=== PATIENT | male | born 1980 | race Asian ===

== ENCOUNTER 2017-07-23 23:02 | Emergency (ER) | payer BC ==
[~2017-07-23] VITALS: Ht 162.6 cm; Wt 78.0 kg
[~2017-07-23 23:02] MED LIST: ALBU6.7H INH; FLUT1DIS7 INH; PRED20TA PO; THEO400T PO
[2017-07-23] MEDS ORDERED: dexamethasone 4mg tablet PO ONE (23:20)
[2017-07-23] MEDS ORDERED: terbutaline 1 mg/ml inj SQ STA (23:20)
[2017-07-24] MEDS: albuterol 2.5 MG/3 ML nebule CONTNEB PRN ×2 (00:01→01:48)
[2017-07-24] MEDS ORDERED: albuterol 2.5 MG/3 ML nebule CONTNEB PRN (01:20)
[2017-07-24] MEDS ORDERED: azithromycin 250mg tablet PO ONE (02:40)
[2017-07-24] MEDS ORDERED: AZIT250T PO (02:40)
[2017-07-24] MEDS ORDERED: PRED20TA PO (02:40)
[2017-07-24] MEDS ORDERED: ALBU6.7H INH (02:40)
[2017-07-24 03:17] VITALS: BP 140/85
== END 2017-07-24 03:18 | disposition home or self-care (01) ==
LOC: ER 23:03
DX: J45.901 Unspecified asthma with (acute) exacerbation (principal); J18.1 Lobar pneumonia, unspecified organism; R06.03 Acute respiratory distress; Z88.1 Allergy status to other antibiotic agents; Z88.6 Allergy status to analgesic agent; Z91.018 Allergy to other foods; Z91.010 Allergy to peanuts; Z88.8 Allergy status to other drugs, medicaments and biological substances; Z79.899 Other long term (current) drug therapy
CPT/HCPCS: 71046; 94644; 94645; 94760; 96372; 99291; J3105; J8540; 94640

== ENCOUNTER 2017-08-19 21:35 | Emergency (ER) | payer BC ==
[~2017-08-19] VITALS: Ht 180.3 cm; Wt 77.2 kg
[~2017-08-19 21:35] MED LIST changes: +AZIT250T PO
[2017-08-19 21:49] VITALS: BP 114/59
[2017-08-19] MEDS ORDERED: albuterol 2.5 MG/3 ML nebule CONTNEB PRN (22:15)
[2017-08-19] MEDS ORDERED: dexamethasone 4mg tablet PO ONE (22:15)
[2017-08-21] MEDS ORDERED: ALB0.5UD IH (14:49)
[2017-08-21] MEDS ORDERED: PRED20TA PO (16:33)
[2017-08-21] MEDS ORDERED: ATR0.5NEB NEB (16:33)
== END 2017-08-20 00:12 | disposition home or self-care (01) ==
LOC: ER 21:36
DX: J45.909 Unspecified asthma, uncomplicated (principal); Z98.890 Other specified postprocedural states; Z60.2 Problems related to living alone; Z88.8 Allergy status to other drugs, medicaments and biological substances; Z91.010 Allergy to peanuts; Z91.018 Allergy to other foods; Z79.899 Other long term (current) drug therapy
CPT/HCPCS: 94644; 94760; 99285; J8540

== ENCOUNTER 2017-08-21 00:45 | Inpatient (IN) | payer BC ==
[~2017-08-21] VITALS: Ht 162.6 cm; Wt 76.0 kg
[2017-08-21] MEDS ORDERED: albuterol 2.5 MG/3 ML nebule CONTNEB PRN ×2 (01:00→01:05)
[2017-08-21] MEDS ORDERED: methylPREDNISolone sod succ 125mg/2ml vial IV ONE (01:05)
[2017-08-21 01:22] LABS: BASOPHILS % (AUTO) 0.4 % (0-1); EOSINOPHILS % (AUTO) 0.2 % (0-6); HEMOGLOBIN 15.3 g/dl (14.0-17.9); LYMPHOCYTES # (AUTO) 2.1 X10'3 (1.1-4.8); LYMPHOCYTES % (AUTO) 17.4 % (21-51); MEAN CORPUSCULAR HEMOGLOBIN 30.1 PG (27.0-31.0); MEAN CORPUSCULAR VOLUME 88.6 FL (78-98); MEAN PLATELET VOLUME 9.7 FL (7.4-10.4); MONOCYTES # (AUTO) 0.9 X10'3 (0-0.9); NEUTROPHILS # (AUTO) 8.9 X10'3 (1.8-7.7); PLATELET COUNT 177 X10'3 (140-440); RED BLOOD COUNT 5.08 X10'6 (4.70-6.10); RED CELL DISTRIBUTION WIDTH 12.8 % (11.5-14.5); WHITE BLOOD COUNT 11.9 X10'3 (4.5-11.0)
[2017-08-21 01:36] LABS: ALANINE AMINOTRANSFERASE 112 U/L (12-78); ALBUMIN/GLOBULIN RATIO 1.3 (1.1-1.5); ALKALINE PHOSPHATASE 88 IU/L (46-116); ANION GAP 10 (8-16); ASPARTATE AMINO TRANSFERASE 27 U/L (10-37); BILIRUBIN,TOTAL 0.4 MG/DL (0.1-1.0); BLOOD UREA NITROGEN 18 MG/DL (7-18); BUN/CREATININE RATIO 15.4 (5.4-32.0); CALCIUM 8.7 MG/DL (8.5-10.1); CHLORIDE 107 MMOL/L (99-107); CREATININE 1.17 MG/DL (0.60-1.10); GLUCOSE 122 MG/DL (70-104); MAGNESIUM 2.2 MG/DL (1.5-2.4); POTASSIUM 3.5 MMOL/L (3.5-5.1); SODIUM 143 MMOL/L (135-145); TOTAL CARBON DIOXIDE 25.9 MMOL/L (24-32); TOTAL PROTEIN 7.2 G/DL (6.4-8.2); eGFR 69 ML/MIN
[2017-08-21] MEDS ORDERED: ondansetron/PF 4mg/2ml inj IV PRN (02:20)
[2017-08-21] MEDS ORDERED: magnesium hydroxide 30ml (MOM) UD suspension PO PRN (02:20)
[2017-08-21] MEDS ORDERED: mag hydrox/Alum hydrox/simeth 30ml oral suspension PO PRN (02:20)
[2017-08-21] MEDS ORDERED: acetaminophen 325mg tablet PO PRN ×2 (02:20)
[2017-08-21] MEDS ORDERED: ipratropium/albuterol 3ml nebule NEB PRN (02:35)
[2017-08-21] MEDS ORDERED: fluticasone/vilanterol 200mcg/25mcg inhaler IH SCH (08:00)
[2017-08-21] MEDS ORDERED: montelukast 10mg tablet PO SCH (08:00)
[2017-08-21] MEDS: methylPREDNISolone sod succ 125mg/2ml vial IV SCH ×2 (10:22→15:21)
[2017-08-21 10:30] VITALS: BP 121/77
[2017-08-21] MEDS ORDERED: ALB0.5UD IH (14:49)
[2017-08-21] MEDS ORDERED: pneumococcal 23-VAL P-sac vacc 25 mcg/0.5ml vial IMVAC ONE (14:55)
[2017-08-21] MEDS ORDERED: PRED20TA PO (16:33)
[2017-08-21] MEDS ORDERED: ATR0.5NEB NEB (16:33)
== END 2017-08-21 16:50 | disposition home or self-care (01) | DRG 203 ==
LOC: ER 00:46 → ED HOLD 02:16 → SUR 3N 07:54
PROVIDERS: ADMIT Internal Medicine; ATTEND Family Medicine
PROC: 3E0234Z Introduction of Serum, Toxoid and Vaccine into Muscle, Percutaneous Approach (ICD-10-PCS; principal; 2017-08-21)
DX: J45.901 Unspecified asthma with (acute) exacerbation (principal); R09.02 Hypoxemia; Z88.1 Allergy status to other antibiotic agents; Z80.9 Family history of malignant neoplasm, unspecified; Z88.8 Allergy status to other drugs, medicaments and biological substances; Z91.018 Allergy to other foods; Z91.010 Allergy to peanuts; Z82.5 Family history of asthma and other chronic lower respiratory diseases; Z77.22 Contact with and (suspected) exposure to environmental tobacco smoke (acute) (chronic); Z23 Encounter for immunization
CPT/HCPCS: 36415; 71045; 80053; 83735; 85025; 87070; 90732; 94640; 94760; 96374; 99291; J2930; J7030

== ENCOUNTER 2017-09-10 01:44 | Emergency (ER) | payer BC ==
[~2017-09-10] VITALS: Ht 162.6 cm; Wt 77.3 kg
[~2017-09-10 01:44] MED LIST changes: +ALB0.5UD IH; +ATR0.5NEB NEB; -AZIT250T PO; -THEO400T PO
[2017-09-10] MEDS ORDERED: PRED10TA23 PO (02:19)
[2017-09-10] MEDS ORDERED: predniSONE 20 mg tablet PO ONE (02:20)
[2017-09-10 02:33] VITALS: BP 137/94
== END 2017-09-10 02:34 | disposition home or self-care (01) ==
LOC: ER 01:44
DX: J30.2 Other seasonal allergic rhinitis (principal); J45.909 Unspecified asthma, uncomplicated; Z88.6 Allergy status to analgesic agent; Z88.1 Allergy status to other antibiotic agents; Z91.010 Allergy to peanuts; Z88.8 Allergy status to other drugs, medicaments and biological substances; Z91.018 Allergy to other foods; Z79.899 Other long term (current) drug therapy; Z98.890 Other specified postprocedural states; Z60.2 Problems related to living alone
CPT/HCPCS: 99283; J7512

== ENCOUNTER 2017-09-11 10:31 | Emergency (ER) | payer BC ==
[~2017-09-11] VITALS: Ht 162.6 cm; Wt 77.3 kg
[~2017-09-11 10:31] MED LIST changes: +PRED10TA23 PO
[2017-09-11] MEDS ORDERED: albuterol 2.5 MG/3 ML nebule CONTNEB PRN (10:45)
[2017-09-11] MEDS ORDERED: magnesium 2GM in 50ml NS 50 ML IV ONE ×2 (10:45→11:25)
[2017-09-11] MEDS ORDERED: methylPREDNISolone sod succ 125mg/2ml vial IV ONE (10:45)
[2017-09-11] MEDS ORDERED: normal saline 1000ML IV soln IVB ONE (10:45)
[2017-09-11] MEDS ORDERED: albuterol 2.5 MG/3 ML nebule ONE (10:54)
[2017-09-11] MEDS ORDERED: methylPREDNISolone sod succ 125mg/2ml vial ONE (11:02)
[2017-09-11] MEDS ORDERED: MAGNESIUM IV ONE (11:13)
[2017-09-11] MEDS ORDERED: NS IV ONE (11:13)
[2017-09-11 12:58] VITALS: BP 130/54
== END 2017-09-11 13:01 | disposition home or self-care (01) ==
LOC: ER 10:31
DX: J45.901 Unspecified asthma with (acute) exacerbation (principal); Z98.890 Other specified postprocedural states; Z60.2 Problems related to living alone; Z88.8 Allergy status to other drugs, medicaments and biological substances; Z91.018 Allergy to other foods; Z91.010 Allergy to peanuts; Z79.899 Other long term (current) drug therapy
CPT/HCPCS: 71045; 94644; 94760; 96365; 96375; 99285; J2930; J3475; J7030; 94640

== ENCOUNTER 2017-10-16 11:32 | Emergency (ER) | payer BC, OTHER ==
[~2017-10-16] VITALS: Ht 162.6 cm; Wt 67.0 kg
[~2017-10-16 11:32] MED LIST changes: -PRED10TA23 PO; -PRED20TA PO
[2017-10-16] MEDS ORDERED: normal saline 1000ML IV soln IVB ONE (13:10)
[2017-10-16] MEDS ORDERED: albuterol 2.5 MG/3 ML nebule NEB ONE (13:10)
[2017-10-16] MEDS ORDERED: FLUT1DIS INH (14:10)
[2017-10-16 14:30] VITALS: BP 119/81
== END 2017-10-16 14:31 | disposition home or self-care (01) ==
LOC: ER 11:33
DX: J45.901 Unspecified asthma with (acute) exacerbation (principal); Z88.6 Allergy status to analgesic agent; Z88.1 Allergy status to other antibiotic agents; Z79.899 Other long term (current) drug therapy; Z91.010 Allergy to peanuts; Z88.8 Allergy status to other drugs, medicaments and biological substances; Z91.018 Allergy to other foods; Z60.2 Problems related to living alone
CPT/HCPCS: 71045; 94640; 94760; 99284; J7030

== ENCOUNTER 2017-10-29 15:24 | Emergency (ER) | payer OTHER ==
[~2017-10-29] VITALS: Ht 162.6 cm; Wt 74.0 kg
[~2017-10-29 15:24] MED LIST changes: +FLUT1DIS INH
[2017-10-29] MEDS ORDERED: methylPREDNISolone sod succ 125mg/2ml vial IV ONE (15:45)
[2017-10-29] MEDS ORDERED: albuterol 2.5 MG/3 ML nebule NEB ONE ×2 (15:45→17:20)
[2017-10-29] MEDS ORDERED: PRED10TA23 PO (17:17)
[2017-10-29 17:47] VITALS: BP 129/78
== END 2017-10-29 17:49 | disposition home or self-care (01) ==
LOC: ER 15:26
DX: J45.901 Unspecified asthma with (acute) exacerbation (principal); Z98.890 Other specified postprocedural states; Z88.6 Allergy status to analgesic agent; Z88.1 Allergy status to other antibiotic agents; Z91.018 Allergy to other foods; Z79.899 Other long term (current) drug therapy; Z60.2 Problems related to living alone
CPT/HCPCS: 94640; 94760; 96374; 99284; J2930

== ENCOUNTER 2017-12-03 18:01 | Emergency (ER) | payer OTHER ==
[~2017-12-03] VITALS: Ht 162.6 cm; Wt 73.0 kg
[~2017-12-03 18:01] MED LIST changes: +PRED20TA PO
[2017-12-03] MEDS ORDERED: methylPREDNISolone sod succ 125mg/2ml vial IV ONE (18:15)
[2017-12-03] MEDS ORDERED: magnesium 1gm/100ml D5W IVPB 100 ML IV ONE (18:15)
[2017-12-03] MEDS ORDERED: albuterol 2.5 MG/3 ML nebule CONTNEB PRN (18:15)
[2017-12-03] MEDS ORDERED: normal saline 1000ML IV soln IVB ONE (18:15)
[2017-12-03 19:02] VITALS: BP 132/87
== END 2017-12-03 19:46 | disposition home or self-care (01) ==
LOC: ER 18:02
DX: J45.901 Unspecified asthma with (acute) exacerbation (principal); Z88.6 Allergy status to analgesic agent; Z88.1 Allergy status to other antibiotic agents; Z88.8 Allergy status to other drugs, medicaments and biological substances; Z91.010 Allergy to peanuts; Z79.899 Other long term (current) drug therapy; Z60.2 Problems related to living alone
CPT/HCPCS: 71045; 94644; 94760; 96365; 96375; 99285; J2930; J7030; 94640

== ENCOUNTER 2017-12-18 02:43 | Emergency (ER) | payer OTHER ==
[~2017-12-18] VITALS: Ht 162.6 cm; Wt 74.4 kg
[2017-12-18] MEDS ORDERED: dexamethasone 4mg tablet PO STA (02:48)
[2017-12-18 02:49] VITALS: BP 113/86
[2017-12-18] MEDS ORDERED: ipratropium/albuterol 3ml nebule NEB ONE (02:50)
[2017-12-18] MEDS ORDERED: ALBU8HFA PO (03:19)
[2017-12-18] MEDS ORDERED: DOXY100C43 PO (03:19)
[2017-12-18] MEDS ORDERED: PRED5TAB PO (03:19)
[2017-12-18] MEDS ORDERED: albuterol 2.5 MG/3 ML nebule CONTNEB PRN (03:40)
[2017-12-18] MEDS ORDERED: ONDA4TAB9 PO (05:00)
== END 2017-12-18 05:19 | disposition home or self-care (01) ==
LOC: ER 02:44
DX: J45.901 Unspecified asthma with (acute) exacerbation (principal); J20.9 Acute bronchitis, unspecified; Z88.6 Allergy status to analgesic agent; Z88.1 Allergy status to other antibiotic agents; Z88.8 Allergy status to other drugs, medicaments and biological substances; Z91.018 Allergy to other foods; Z79.899 Other long term (current) drug therapy
CPT/HCPCS: 94640; 94644; 94760; 99285; J8540

== ENCOUNTER 2018-02-02 11:57 | Emergency (ER) | payer MEDICAID, OTHER ==
[~2018-02-02] VITALS: Ht 162.6 cm; Wt 74.0 kg
[~2018-02-02 11:57] MED LIST changes: +INHA1INH2 IH; +PRED10TA PO; -PRED20TA PO; +PRED5TAB PO
[2018-02-02] MEDS ORDERED: ipratropium/albuterol 3ml nebule NEB ONE (12:15)
[2018-02-02] MEDS ORDERED: methylPREDNISolone sod succ 125mg/2ml vial IM ONE (12:20)
[2018-02-02] MEDS ORDERED: PRED10TA PO (13:20)
[2018-02-02] MEDS ORDERED: ALB0.5UD IH (13:20)
[2018-02-02] MEDS ORDERED: ALBU8HFA PO (13:20)
[2018-02-02 13:35] VITALS: BP 126/78
== END 2018-02-02 13:38 | disposition home or self-care (01) ==
LOC: ER 11:58
DX: J45.901 Unspecified asthma with (acute) exacerbation (principal); Z88.5 Allergy status to narcotic agent; Z88.1 Allergy status to other antibiotic agents; Z91.018 Allergy to other foods; Z91.010 Allergy to peanuts; Z88.8 Allergy status to other drugs, medicaments and biological substances; Z79.899 Other long term (current) drug therapy
CPT/HCPCS: 93005; 94640; 94760; 96372; 99283; J2930

== ENCOUNTER 2018-02-25 04:41 | Emergency (ER) | payer MEDICAID ==
[~2018-02-25] VITALS: Ht 162.6 cm; Wt 70.0 kg
[~2018-02-25 04:41] MED LIST changes: +ALBU8HFA PO
[2018-02-25 04:44] VITALS: BP 123/84
[2018-02-25] MEDS ORDERED: ipratropium/albuterol 3ml nebule NEB ONE (04:55)
[2018-02-25] MEDS ORDERED: PRED20TA PO (05:01)
== END 2018-02-25 05:18 | disposition home or self-care (01) ==
LOC: ER 04:42
DX: J22 Unspecified acute lower respiratory infection (principal); J45.909 Unspecified asthma, uncomplicated; Z88.6 Allergy status to analgesic agent; Z88.1 Allergy status to other antibiotic agents; Z91.018 Allergy to other foods; Z91.010 Allergy to peanuts; Z88.8 Allergy status to other drugs, medicaments and biological substances; Z79.899 Other long term (current) drug therapy; Z60.2 Problems related to living alone
CPT/HCPCS: 99283

== ENCOUNTER 2018-03-27 00:10 | Emergency (ER) | payer MEDICAID ==
[~2018-03-27] VITALS: Ht 162.6 cm; Wt 170.0 kg
[~2018-03-27 00:10] MED LIST changes: -ALBU8HFA PO; +PRED20TA PO
[2018-03-27] MEDS ORDERED: ipratropium 0.5 MG/2.5ML nebule IH ONE (00:55)
[2018-03-27] MEDS ORDERED: albuterol 2.5 MG/3 ML nebule CONTNEB PRN (00:55)
[2018-03-27] MEDS ORDERED: methylPREDNISolone sod succ 125mg/2ml vial IV ONE (00:55)
[2018-03-27] MEDS ORDERED: normal saline 1000ML IV soln IVB ONE (01:40)
[2018-03-27] MEDS ORDERED: INHA1INH2 (02:52)
[2018-03-27] MEDS ORDERED: PRED20TA PO (02:52)
[2018-03-27 03:26] VITALS: BP 113/70
== END 2018-03-27 03:27 | disposition home or self-care (01) ==
LOC: ER 00:10
DX: J45.901 Unspecified asthma with (acute) exacerbation (principal); Z88.6 Allergy status to analgesic agent; Z88.1 Allergy status to other antibiotic agents; Z91.010 Allergy to peanuts; Z91.018 Allergy to other foods; Z88.8 Allergy status to other drugs, medicaments and biological substances; Z79.899 Other long term (current) drug therapy; Z60.2 Problems related to living alone
CPT/HCPCS: 87502; 87503; 94644; 94760; 96374; 99285; J2930; 94640

== ENCOUNTER 2018-05-05 20:49 | Emergency (ER) | payer MEDICAID ==
[~2018-05-05] VITALS: Ht 162.6 cm; Wt 74.0 kg
[~2018-05-05 20:49] MED LIST changes: +INHA1INH2; -PRED20TA PO
[2018-05-05] MEDS ORDERED: albuterol 2.5 MG/3 ML nebule NEB ONE (21:00)
[2018-05-05 21:01] VITALS: BP 134/73
[2018-05-05] MEDS ORDERED: ipratropium/albuterol 3ml nebule NEB ONE (21:15)
[2018-05-05] MEDS ORDERED: predniSONE 20 mg tablet PO ONE (21:15)
[2018-05-05] MEDS ORDERED: ipratropium/albuterol 3ml nebule ONE (21:23)
[2018-05-05] MEDS ORDERED: PRED20TA PO (21:34)
[2018-05-05] MEDS ORDERED: ALBU8.5H8 IH (21:56)
== END 2018-05-05 22:07 | disposition home or self-care (01) ==
LOC: ER 20:50
DX: J45.901 Unspecified asthma with (acute) exacerbation (principal); F17.210 Nicotine dependence, cigarettes, uncomplicated; Z98.890 Other specified postprocedural states; Z87.01 Personal history of pneumonia (recurrent); Z79.899 Other long term (current) drug therapy; Z88.6 Allergy status to analgesic agent; Z88.1 Allergy status to other antibiotic agents; Z91.010 Allergy to peanuts
CPT/HCPCS: 93005; 94640; 94760; 99283; J7512

== ENCOUNTER 2018-05-24 08:22 | Emergency (ER) | payer MEDICAID ==
[~2018-05-24] VITALS: Ht 162.6 cm; Wt 73.0 kg
[~2018-05-24 08:22] MED LIST changes: +ALBU8.5H8 IH; +PRED20TA PO
[2018-05-24] MEDS ORDERED: normal saline 1000ML IV soln IVB ONE (08:55)
[2018-05-24] MEDS ORDERED: albuterol 2.5 MG/3 ML nebule CONTNEB PRN (08:55)
[2018-05-24] MEDS ORDERED: methylPREDNISolone sod succ 125mg/2ml vial IV ONE (08:55)
[2018-05-24 09:18] LABS: BASOPHILS % (AUTO) 0.5 % (0-1); EOSINOPHILS # (AUTO) 0.8 X10'3 (0-0.9); EOSINOPHILS % (AUTO) 9.2 % (0-6); HEMATOCRIT 46.9 % (42.0-52.0); HEMOGLOBIN 15.8 g/dl (14.0-17.9); LYMPHOCYTES # (AUTO) 1.7 X10'3 (1.1-4.8); LYMPHOCYTES % (AUTO) 20.4 % (21-51); MEAN CORPUSCULAR HEMOGLOBIN 29.8 PG (27.0-31.0); MEAN CORPUSCULAR HGB CONC 33.6 % (33.0-36.5); MEAN CORPUSCULAR VOLUME 88.7 FL (78-98); MEAN PLATELET VOLUME 8.7 FL (7.4-10.4); MONOCYTES # (AUTO) 0.7 X10'3 (0-0.9); MONOCYTES % (AUTO) 8.8 % (2-12); NEUTROPHILS # (AUTO) 5.1 X10'3 (1.8-7.7); NEUTROPHILS % (AUTO) 61.1 % (42-75); PLATELET COUNT 209 X10'3 (140-440); RED BLOOD COUNT 5.28 X10'6 (4.70-6.10); RED CELL DISTRIBUTION WIDTH 14.3 % (11.5-14.5); WHITE BLOOD COUNT 8.4 X10'3 (4.5-11.0)
[2018-05-24 09:43] LABS: ALANINE AMINOTRANSFERASE 39 U/L (12-78); ALBUMIN 3.6 G/DL (3.4-5.0); ALKALINE PHOSPHATASE 76 IU/L (46-116); ANION GAP 8 (8-16); ASPARTATE AMINO TRANSFERASE 20 U/L (10-37); BILIRUBIN,TOTAL 0.5 MG/DL (0.1-1.0); BLOOD UREA NITROGEN 8 MG/DL (7-18); BUN/CREATININE RATIO 6.5 (5.4-32.0); CALCIUM 8.4 MG/DL (8.5-10.1); CHLORIDE 108 MMOL/L (99-107); CREATININE 1.23 MG/DL (0.60-1.10); SODIUM 143 MMOL/L (135-145); TOTAL CARBON DIOXIDE 27.4 MMOL/L (24-32); TOTAL PROTEIN 7.3 G/DL (6.4-8.2); eGFR 65 ML/MIN
[2018-05-24 09:53] VITALS: BP 113/82
[2018-05-24 10:02] LABS: GLUCOSE 84 MG/DL (70-104)
[2018-05-24] MEDS ORDERED: PRED10TA23 PO (10:24)
[2018-05-24 10:40] LABS: D-DIMER 1.01 MG/L FEU (0-0.50); PARTIAL THROMBOPLASTIN TIME 33 SECONDS (22-32); PROTHROMBIN TIME 10.3 SECONDS (9.0-12.0)
== END 2018-05-24 10:41 | disposition home or self-care (01) ==
LOC: ER 08:22
DX: J45.901 Unspecified asthma with (acute) exacerbation (principal); Z87.01 Personal history of pneumonia (recurrent); Z98.890 Other specified postprocedural states; Z79.899 Other long term (current) drug therapy; Z88.6 Allergy status to analgesic agent; Z88.1 Allergy status to other antibiotic agents; Z91.018 Allergy to other foods; Z91.010 Allergy to peanuts
CPT/HCPCS: 36415; 71045; 80053; 83880; 84484; 85025; 85379; 85610; 85730; 93005; 94644; 96361; 96374; 99285; J2930; J7030; 94640; 99284

== ENCOUNTER 2018-06-13 02:20 | Emergency (ER) | payer MEDICAID ==
[~2018-06-13] VITALS: Ht 162.6 cm; Wt 77.0 kg
[~2018-06-13 02:20] MED LIST changes: +PRED10TA23 PO; -PRED20TA PO
[2018-06-13] MEDS ORDERED: albuterol 2.5 MG/3 ML nebule CONTNEB PRN (02:30)
[2018-06-13] MEDS ORDERED: dexamethasone 4mg tablet PO ONE (02:30)
--- NOTE | 2018-06-13 02:52 | NUR ---
PT GIVEN PO MEDS - RT PAGED, PT AWAITING SVN
[2018-06-13] MEDS ORDERED: DEC4T PO (03:29)
[2018-06-13 04:22] VITALS: BP 136/98
== END 2018-06-13 04:23 | disposition home or self-care (01) ==
LOC: ER 02:21
DX: J45.901 Unspecified asthma with (acute) exacerbation (principal); Z88.6 Allergy status to analgesic agent; Z88.1 Allergy status to other antibiotic agents
CPT/HCPCS: 94640; 94760; 99283; J8540

== ENCOUNTER 2018-07-19 17:02 | Emergency (ER) | payer MEDICAID ==
[~2018-07-19] VITALS: Ht 162.6 cm; Wt 77.3 kg
[~2018-07-19 17:02] MED LIST changes: +FLUT100D2 INH; -PRED10TA23 PO; +PRED20TA PO
[2018-07-19 17:59] LABS: BASOPHILS % (AUTO) 0.3 % (0-1); EOSINOPHILS # (AUTO) 0.8 X10'3 (0-0.9); HEMATOCRIT 49.1 % (42.0-52.0); HEMOGLOBIN 16.1 g/dl (14.0-17.9); LYMPHOCYTES # (AUTO) 2.5 X10'3 (1.1-4.8); MEAN CORPUSCULAR HEMOGLOBIN 29.4 PG (27.0-31.0); MEAN CORPUSCULAR HGB CONC 32.8 g/dL (33.0-36.5); MEAN CORPUSCULAR VOLUME 89.6 FL (78-98); MEAN PLATELET VOLUME 9.1 FL (7.4-10.4); MONOCYTES # (AUTO) 1.5 X10'3 (0-0.9); MONOCYTES % (AUTO) 11.8 % (2-12); NEUTROPHILS # (AUTO) 7.8 X10'3 (1.8-7.7); NEUTROPHILS % (AUTO) 61.9 % (42-75); PLATELET COUNT 185 X10'3 (140-440); RED BLOOD COUNT 5.48 X10'6 (4.70-6.10); RED CELL DISTRIBUTION WIDTH 14.9 % (11.5-14.5); WHITE BLOOD COUNT 12.6 X10'3 (4.5-11.0)
[2018-07-19 18:03] LABS: ALANINE AMINOTRANSFERASE 50 U/L (12-78); ALBUMIN 3.6 G/DL (3.4-5.0); ALKALINE PHOSPHATASE 58 IU/L (46-116); ANION GAP 8 (8-16); ASPARTATE AMINO TRANSFERASE 23 U/L (10-37); BILIRUBIN,TOTAL 0.8 MG/DL (0.1-1.0); BLOOD UREA NITROGEN 18 MG/DL (7-18); BUN/CREATININE RATIO 13.5 (5.4-32.0); CALCIUM 8.7 MG/DL (8.5-10.1); CHLORIDE 103 MMOL/L (99-107); CREATININE 1.33 MG/DL (0.60-1.10); GLUCOSE 102 MG/DL (70-104); POTASSIUM 3.2 MMOL/L (3.5-5.1); SODIUM 143 MMOL/L (135-145); TOTAL CARBON DIOXIDE 31.6 MMOL/L (24-32); TOTAL PROTEIN 7.3 G/DL (6.4-8.2); eGFR 60 ML/MIN
[2018-07-19] MEDS ORDERED: albuterol 2.5 MG/3 ML nebule NEB ONE ×2 (19:50→20:55)
[2018-07-19] MEDS ORDERED: prednisone 10mg tablet PO SCH (20:25)
[2018-07-19] MEDS ORDERED: predniSONE 20 mg tablet PO ONE (20:30)
--- NOTE | 2018-07-19 21:20 | NUR ---
RT AT BEDSIDE
[2018-07-19] MEDS ORDERED: PRED20TA PO (21:30)
[2018-07-19 21:44] VITALS: BP 148/102
== END 2018-07-19 21:54 | disposition home or self-care (01) ==
LOC: ER 17:03
DX: J45.901 Unspecified asthma with (acute) exacerbation (principal); Z88.6 Allergy status to analgesic agent; Z88.1 Allergy status to other antibiotic agents; Z91.010 Allergy to peanuts; Z88.8 Allergy status to other drugs, medicaments and biological substances; Z91.018 Allergy to other foods
CPT/HCPCS: 36415; 71046; 80053; 85025; 94640; 94760; 99284; J7512

== ENCOUNTER 2018-09-06 00:56 | Emergency (ER) | payer MEDICAID ==
[~2018-09-06] VITALS: Ht 162.6 cm; Wt 78.2 kg
[~2018-09-06 00:56] MED LIST changes: -PRED20TA PO
[2018-09-06] MEDS ORDERED: albuterol 2.5 MG/3 ML nebule CONTNEB PRN (01:10)
[2018-09-06] MEDS ORDERED: normal saline 1000ml 1,000 ML IV ONE (01:10)
[2018-09-06] MEDS ORDERED: methylPREDNISolone sod succ 125mg/2ml vial IV ONE (01:10)
[2018-09-06] MEDS ORDERED: PRED20TA PO (02:53)
[2018-09-06 03:10] VITALS: BP 131/84
== END 2018-09-06 03:12 | disposition home or self-care (01) ==
LOC: ER 00:56
DX: J45.901 Unspecified asthma with (acute) exacerbation (principal); Z88.6 Allergy status to analgesic agent; Z88.1 Allergy status to other antibiotic agents; Z91.010 Allergy to peanuts; Z88.8 Allergy status to other drugs, medicaments and biological substances; Z91.018 Allergy to other foods
CPT/HCPCS: 94644; 94760; 96374; 99285; J2930; J7030; 94640

== ENCOUNTER 2018-09-18 00:17 | Emergency (ER) | payer MEDICAID ==
[~2018-09-18] VITALS: Ht 162.6 cm; Wt 77.0 kg
[2018-09-18] MEDS: albuterol 2.5 MG/3 ML nebule CONTNEB PRN (00:30)
--- NOTE | 2018-09-18 00:31 | NUR ---
MD IN PROCEDURE - VERBAL ORDER GIVEN FOR CONT NEB WITH 10MG ALBUTEROL AND 125MG SOLU-MEDROL IVP -- ORDERED ENTERED. RT AT BEDSIDE.
[2018-09-18] MEDS: ipratropium 0.5 MG/2.5ML nebule IH ONE (01:02)
[2018-09-18] MEDS: methylPREDNISolone sod succ 125mg/2ml vial IV ONE (01:09)
[2018-09-18] MEDS: normal saline 1000ML IV soln IVB ONE (01:09)
[2018-09-18 01:16] VITALS: BP 126/73
[2018-09-18] MEDS ORDERED: PRED10TA PO (01:50)
== END 2018-09-18 02:10 | disposition home or self-care (01) ==
LOC: ER 00:18
DX: J45.901 Unspecified asthma with (acute) exacerbation (principal); Z98.890 Other specified postprocedural states; Z60.2 Problems related to living alone; Z88.1 Allergy status to other antibiotic agents; Z88.8 Allergy status to other drugs, medicaments and biological substances; Z91.018 Allergy to other foods; Z79.899 Other long term (current) drug therapy
CPT/HCPCS: 94640; 94644; 94760; 96374; 99285; J2930; J7030

== ENCOUNTER 2018-12-09 04:26 | Emergency (ER) | payer MEDICAID ==
[~2018-12-09] VITALS: Ht 162.6 cm; Wt 77.3 kg
[~2018-12-09 04:26] MED LIST changes: -ALBU6.7H INH; +ALBU6.7H9 INH
[2018-12-09] MEDS ORDERED: oxymetazoline 15 ML nasal spray NS ONE (06:10)
[2018-12-09 08:19] VITALS: BP 121/82
== END 2018-12-09 08:21 | disposition home or self-care (01) ==
LOC: ER 04:27
DX: J06.9 Acute upper respiratory infection, unspecified (principal); B09 Unspecified viral infection characterized by skin and mucous membrane lesions; J44.9 Chronic obstructive pulmonary disease, unspecified; Z98.890 Other specified postprocedural states; Z88.6 Allergy status to analgesic agent; Z88.1 Allergy status to other antibiotic agents; Z79.899 Other long term (current) drug therapy; Z91.018 Allergy to other foods; Z91.010 Allergy to peanuts
CPT/HCPCS: 99283

== ENCOUNTER 2018-12-25 08:23 | Emergency (ER) | payer MEDICAID ==
[~2018-12-25] VITALS: Ht 162.6 cm; Wt 80.9 kg
[2018-12-25] MEDS ORDERED: albuterol 2.5 MG/3 ML nebule NEB ONE (08:40)
[2018-12-25] MEDS ORDERED: FEXO1TAB8 PO (09:08)
[2018-12-25] MEDS ORDERED: PRED20TA PO (09:08)
[2018-12-25 09:13] VITALS: BP 118/70
[2018-12-25] MEDS ORDERED: ipratropium/albuterol 3ml nebule NEB ONE ×3 (09:15→10:20)
--- NOTE | 2018-12-25 10:46 | NUR ---
patient had second breathing treatment ordered but had to leave due to transportation issues. Refused second treatment and left. provider aware
== END 2018-12-25 10:46 | disposition home or self-care (01) ==
LOC: ER 08:24
DX: J45.901 Unspecified asthma with (acute) exacerbation (principal); Z98.890 Other specified postprocedural states; Z87.01 Personal history of pneumonia (recurrent); Z79.899 Other long term (current) drug therapy; Z88.6 Allergy status to analgesic agent; Z88.1 Allergy status to other antibiotic agents; Z91.010 Allergy to peanuts
CPT/HCPCS: 94640; 94760; 99283; 99284

== ENCOUNTER 2019-01-13 19:15 | Emergency (ER) | payer MEDICAID ==
[~2019-01-13] VITALS: Ht 162.6 cm; Wt 77.3 kg
[~2019-01-13 19:15] MED LIST changes: +FEXO1TAB8 PO; +PRED20TA PO
[2019-01-13] MEDS ORDERED: methylPREDNISolone sod succ 125mg/2ml vial IV ONE (19:25)
[2019-01-13] MEDS ORDERED: albuterol 2.5 MG/3 ML nebule CONTNEB PRN (19:25)
[2019-01-13] MEDS ORDERED: magnesium 2GM in 50ml NS 50 ML IV ONE (19:25)
[2019-01-13] MEDS ORDERED: normal saline 1000ML IV soln IVB ONE (19:25)
[2019-01-13 19:45] VITALS: BP 139/84
[2019-01-13] MEDS ORDERED: ipratropium/albuterol 3ml nebule NEB ONE (20:45)
== END 2019-01-13 21:33 | disposition home or self-care (01) ==
LOC: ER 19:17
DX: J45.901 Unspecified asthma with (acute) exacerbation (principal); Z98.890 Other specified postprocedural states; F10.99 Alcohol use, unspecified with unspecified alcohol-induced disorder; Y90.9 Presence of alcohol in blood, level not specified; Z60.2 Problems related to living alone; Z88.1 Allergy status to other antibiotic agents; Z88.8 Allergy status to other drugs, medicaments and biological substances; Z91.010 Allergy to peanuts; Z91.018 Allergy to other foods; Z79.899 Other long term (current) drug therapy
CPT/HCPCS: 94640; 94644; 94760; 96365; 96375; 99285; J2930; J3475; J7030; 99283

== ENCOUNTER 2019-01-27 23:54 | Inpatient (IN) | payer MEDICAID ==
[~2019-01-27] VITALS: Ht 162.6 cm; Wt 77.3 kg
[~2019-01-27 23:54] MED LIST changes: -PRED20TA PO
[2019-01-28] MEDS ORDERED: methylPREDNISolone sod succ 125mg/2ml vial IV ONE (00:10)
[2019-01-28] MEDS ORDERED: ipratropium 0.5 MG/2.5ML nebule IH ONE (00:10)
[2019-01-28] MEDS ORDERED: magnesium 2GM in 50ml NS 50 ML IV ONE (00:10)
[2019-01-28] MEDS ORDERED: normal saline 1000ML IV soln IVB ONE (00:10)
[2019-01-28] MEDS ORDERED: albuterol 2.5 MG/3 ML nebule CONTNEB PRN (00:10)
--- NOTE | 2019-01-28 02:09 | NUR ---
got pt up and ambulated and his spo2 is 89-90%. He said that when he is at his best he lives at 93%. He states that he feels well enough to go home. He said he is definately not bad enough to be admitted. Informed .
--- NOTE | 2019-01-28 04:07 | NUR ---
took pt out for a walk. He stays at 89-90% RA and HR 98.
[2019-01-28] MEDS ORDERED: benzonatate 100mg capsule PO ONE (04:10)
--- NOTE | 2019-01-28 04:34 | NUR ---
pt back from radiology and audible wheeze present. adm duong parker. Paged RT.
[2019-01-28] MEDS ORDERED: albuterol 2.5 MG/3 ML nebule CONTNEB ONE (04:55)
[2019-01-28 05:10] LABS: BASOPHILS % (AUTO) 0.3 % (0-1); EOSINOPHILS # (AUTO) 0.1 X10'3 (0-0.9); EOSINOPHILS % (AUTO) 1.4 % (0-6); HEMATOCRIT 45.4 % (42.0-52.0); HEMOGLOBIN 15.4 g/dl (14.0-17.9); LYMPHOCYTES # (AUTO) 0.6 X10'3 (1.1-4.8); LYMPHOCYTES % (AUTO) 8.1 % (21-51); MEAN CORPUSCULAR HEMOGLOBIN 30.4 PG (27.0-31.0); MEAN CORPUSCULAR HGB CONC 33.8 g/dL (33.0-36.5); MEAN CORPUSCULAR VOLUME 89.9 FL (78-98); MEAN PLATELET VOLUME 9.4 FL (7.4-10.4); MONOCYTES # (AUTO) 0.1 X10'3 (0-0.9); MONOCYTES % (AUTO) 0.7 % (2-12); NEUTROPHILS # (AUTO) 6.6 X10'3 (1.8-7.7); NEUTROPHILS % (AUTO) 89.5 % (42-75); PLATELET COUNT 157 X10'3 (140-440); RED BLOOD COUNT 5.05 X10'6 (4.70-6.10); RED CELL DISTRIBUTION WIDTH 13.3 % (11.5-14.5); WHITE BLOOD COUNT 7.4 X10'3 (4.5-11.0)
[2019-01-28 05:26] LABS: ALANINE AMINOTRANSFERASE 44 U/L (12-78); ALBUMIN/GLOBULIN RATIO 1.3 (1.1-1.5); ALKALINE PHOSPHATASE 65 IU/L (46-116); ANION GAP 9 (8-16); ASPARTATE AMINO TRANSFERASE 21 U/L (10-37); BILIRUBIN,TOTAL 0.4 MG/DL (0.1-1.0); BLOOD UREA NITROGEN 12 MG/DL (7-18); BUN/CREATININE RATIO 11.7 (5.4-32.0); CALCIUM 7.9 MG/DL (8.5-10.1); CHLORIDE 109 MMOL/L (99-107); CREATININE 1.03 MG/DL (0.60-1.10); GLUCOSE 150 MG/DL (70-104); POTASSIUM 3.4 MMOL/L (3.5-5.1); SODIUM 143 MMOL/L (135-145); TOTAL CARBON DIOXIDE 25.4 MMOL/L (24-32); TOTAL PROTEIN 7.2 G/DL (6.4-8.2); eGFR 80 ML/MIN
[2019-01-28] MEDS ORDERED: diphenhydrAMINE 50 mg/ml inj IV PRN (05:50)
[2019-01-28] MEDS ORDERED: bisacodyl 10mg suppository rectal RC PRN (05:50)
[2019-01-28] MEDS ORDERED: potassium CL 10mEq/100ml bag 100 ML IV PRN ×2 (05:50)
[2019-01-28] MEDS ORDERED: magnesium Cl slow-release 64mg tablet PO PRN (05:50)
[2019-01-28] MEDS ORDERED: magnesium 2GM in 50ml NS 50 ML IV PRN (05:50)
[2019-01-28] MEDS ORDERED: metoclopramide 5 mg/ml inj IV PRN (05:50)
[2019-01-28] MEDS ORDERED: acetaminophen 325mg tablet PO PRN ×2 (05:50)
[2019-01-28] MEDS ORDERED: potassium Cl 20 mEq SR tablet PO PRN (05:50)
[2019-01-28] MEDS ORDERED: magnesium hydroxide 30ml (MOM) UD suspension PO PRN (05:50)
[2019-01-28] MEDS ORDERED: magnesium 4gm in 100ml NS 100 ML IV PRN (05:50)
[2019-01-28] MEDS ORDERED: ondansetron/PF 4mg/2ml inj IV PRN (05:50)
[2019-01-28] MEDS ORDERED: mag hydrox/Alum hydrox/simeth 30ml oral suspension PO PRN (05:50)
[2019-01-28] MEDS ORDERED: ipratropium/albuterol 3ml nebule NEB PRN ×2 (05:50→13:30)
[2019-01-28] MEDS ORDERED: diphenhydrAMINE 25mg capsule PO PRN (05:50)
--- NOTE | 2019-01-28 05:53 | NUR ---
post oxygen he is around 93-94 % 2LNC He is asleep
--- NOTE | 2019-01-28 07:45 | NUR ---
REPORT ATTEMPTED, RN JAKE TO CALL BACK
[2019-01-28] MEDS: ipratropium/albuterol 3ml nebule NEB SCH ×5 (07:48→22:51)
[2019-01-28] MEDS: K and/or MAG REPLACEMENT MC SCH (08:00)
[2019-01-28] MEDS: enoxaparin 40mg/0.4ml syringe SUBCUT SCH (08:00)
--- NOTE | 2019-01-28 08:05 | NUR ---
Patient in room ED 7. I have received report from DAVID Carter and had the opportunity to ask questions and assume patient care.
[2019-01-28] MEDS: normal saline 1000ml 1,000 ML IV SCH ×2 (08:38→19:06)
[2019-01-28] MEDS: CefTRIAXone/D5W-Rocephin 1gm 50 ML IV SCH (08:43)
[2019-01-28] MEDS: methylPREDNISolone sod succ 125mg/2ml vial IV SCH ×3 (08:59→19:35)
[2019-01-28 09:00] VITALS: BP 126/83
[2019-01-28 11:00] VITALS: BP 103/60
[2019-01-28] MEDS ORDERED: FLUT1AER4 (11:39)
[2019-01-28] MEDS: potassium Cl 20 mEq SR tablet PO PRN ×3 (12:05→20:52)
--- NOTE | 2019-01-28 18:36 | NUR ---
Problems reprioritized. Patient report given, questions answered & plan of care reviewed with DAVID Mace.
--- NOTE | 2019-01-28 18:36 | NUR ---
Received report from Caitlin HERNANDEZ pt is awake and alert getting VS taken, visitors at bedside.
[2019-01-28 19:00] VITALS: BP 139/89
[2019-01-28] MEDS ORDERED: temazepam 15mg capsule PO PRN (21:00)
[2019-01-28 23:50] VITALS: BP 127/69
[2019-01-29] MEDS: methylPREDNISolone sod succ 125mg/2ml vial IV SCH ×2 (01:46→08:08)
[2019-01-29] MEDS: normal saline 1000ml 1,000 ML IV SCH ×2 (01:48→04:41)
[2019-01-29 04:47] LABS: BASOPHILS % (AUTO) 0.1 % (0-1); EOSINOPHILS % (AUTO) 0 % (0-6); HEMOGLOBIN 14.8 g/dl (14.0-17.9); LYMPHOCYTES # (AUTO) 1.2 X10'3 (1.1-4.8); LYMPHOCYTES % (AUTO) 9.2 % (21-51); MEAN CORPUSCULAR HEMOGLOBIN 29.6 PG (27.0-31.0); MEAN CORPUSCULAR HGB CONC 32.9 g/dL (33.0-36.5); MEAN PLATELET VOLUME 9.8 FL (7.4-10.4); MONOCYTES # (AUTO) 0.2 X10'3 (0-0.9); MONOCYTES % (AUTO) 1.3 % (2-12); NEUTROPHILS # (AUTO) 11.8 X10'3 (1.8-7.7); NEUTROPHILS % (AUTO) 89.4 % (42-75); PLATELET COUNT 164 X10'3 (140-440); RED CELL DISTRIBUTION WIDTH 13.9 % (11.5-14.5); WHITE BLOOD COUNT 13.3 X10'3 (4.5-11.0)
[2019-01-29 04:56] LABS: ALBUMIN 3.5 G/DL (3.4-5.0); ANION GAP 7 (8-16); BLOOD UREA NITROGEN 16 MG/DL (7-18); BUN/CREATININE RATIO 16.8 (5.4-32.0); CALCIUM 8.6 MG/DL (8.5-10.1); CHLORIDE 112 MMOL/L (99-107); CREATININE 0.95 MG/DL (0.60-1.10); GLUCOSE 138 MG/DL (70-104); MAGNESIUM 2.1 MG/DL (1.5-2.4); SODIUM 144 MMOL/L (135-145); eGFR 88 ML/MIN
--- NOTE | 2019-01-29 06:28 | NUR ---
Patient in room CALLIE 344. I have received report from DAVID Mace and had the opportunity to ask questions and assume patient care.
--- NOTE | 2019-01-29 06:28 | NUR ---
Gave report to Caitlin HERNANDEZ pt is resting on 1L of O2 via NC in no apparent distress, call light and items of freq use within reach.
--- NOTE | 2019-01-29 06:45 | NUR ---
Patient in room CALLIE 344. I have received report from and had the opportunity to ask questions and assume patient care.
[2019-01-29 07:00] VITALS: BP 125/72
[2019-01-29] MEDS: ipratropium/albuterol 3ml nebule NEB SCH ×2 (07:07→11:21)
[2019-01-29] MEDS: K and/or MAG REPLACEMENT MC SCH (08:00)
[2019-01-29] MEDS: enoxaparin 40mg/0.4ml syringe SUBCUT SCH (08:00)
[2019-01-29] MEDS: CefTRIAXone/D5W-Rocephin 1gm 50 ML IV SCH (08:07)
[2019-01-29 11:00] VITALS: BP 139/86
[2019-01-29] MEDS ORDERED: PRED20TA PO (13:18)
--- NOTE | 2019-01-29 14:00 | NUR ---
Patient discharged home via self and taken from unit via ambulation. Patient encouraged to try and find a ride but stated he is fine to drive himself due to his car already being her. Patient alert, oriented and in no apparent distress at time of discharge. PIV removed with cannula intact. Patient took all belongings with him including discharge instructions. Patient given time for questions and answers and stated an understanding of this informations. Prednisone prescription called into [facility] on [address] per patient request.
[2019-01-29] MEDS ORDERED: lactobacillus rhamnosus 10,000 MMU CELLS/CAPSULE PO SCH (20:00)
== END 2019-01-29 14:01 | disposition home or self-care (01) | DRG 140 ==
LOC: ER 23:55 → ED HOLD 01-28 06:19 → EDBEDREQ 01-28 07:35 → SUR 3N 01-28 08:22
PROVIDERS: ADMIT Family Medicine; ATTEND Family Medicine
DX: J44.1 Chronic obstructive pulmonary disease with (acute) exacerbation (principal); J96.01 Acute respiratory failure with hypoxia; E87.6 Hypokalemia; I48.91 Unspecified atrial fibrillation; D64.9 Anemia, unspecified; T38.0X5A Adverse effect of glucocorticoids and synthetic analogues, initial encounter; R73.9 Hyperglycemia, unspecified; J45.901 Unspecified asthma with (acute) exacerbation; Z79.51 Long term (current) use of inhaled steroids; Z79.899 Other long term (current) drug therapy; Z88.8 Allergy status to other drugs, medicaments and biological substances; Z82.5 Family history of asthma and other chronic lower respiratory diseases; Z80.9 Family history of malignant neoplasm, unspecified; Y92.89 Other specified places as the place of occurrence of the external cause
CPT/HCPCS: 36415; 71046; 80048; 80053; 83735; 85025; 87081; 94640; 94667; 94760; 96374; 96375; 99285; G0378; J0696; J1650; J2930; J3475; J7030

== ENCOUNTER 2019-03-09 02:27 | Emergency (ER) | payer MEDICAID ==
[~2019-03-09] VITALS: Ht 162.6 cm; Wt 77.3 kg
[~2019-03-09 02:27] MED LIST changes: +FLUT1AER4; -FLUT1DIS INH; -INHA1INH2 IH; -PRED10TA PO; -PRED5TAB PO
[2019-03-09] MEDS ORDERED: albuterol 2.5 MG/3 ML nebule CONTNEB PRN (02:35)
[2019-03-09] MEDS ORDERED: methylPREDNISolone sod succ 125mg/2ml vial IV ONE (02:40)
[2019-03-09] MEDS ORDERED: magnesium 2GM in 50ml NS 50 ML IV ONE (02:40)
--- NOTE | 2019-03-09 03:47 | NUR ---
PT SATING AT 90-91% RA, PLACED ON NC 2 L. PT STILL SATING AT 91%. INCREASE O2 TO 3 L, PT NOW SATING AT 93%
[2019-03-09] MEDS ORDERED: PRED20TA PO (03:57)
[2019-03-09 04:21] VITALS: BP 130/92
== END 2019-03-09 04:25 | disposition home or self-care (01) ==
LOC: ER 02:27
DX: J06.9 Acute upper respiratory infection, unspecified (principal); J45.909 Unspecified asthma, uncomplicated; F17.210 Nicotine dependence, cigarettes, uncomplicated; Z88.6 Allergy status to analgesic agent; Z88.1 Allergy status to other antibiotic agents; Z91.010 Allergy to peanuts; Z91.018 Allergy to other foods; Z79.899 Other long term (current) drug therapy; Z98.890 Other specified postprocedural states; Z60.2 Problems related to living alone
CPT/HCPCS: 71045; 93005; 94644; 94760; 96365; 96366; 96375; 99285; J2930; J3475; 94640; 96368

== ENCOUNTER 2019-03-17 20:07 | Emergency (ER) | payer MEDICAID ==
[~2019-03-17] VITALS: Ht 162.6 cm; Wt 77.3 kg
[~2019-03-17 20:07] MED LIST changes: +PRED20TA PO
[2019-03-17] MEDS ORDERED: ipratropium/albuterol 3ml nebule NEB STA (20:21)
[2019-03-17] MEDS ORDERED: dexamethasone 4mg tablet PO ONE (20:55)
[2019-03-17] MEDS ORDERED: albuterol 2.5 MG/3 ML nebule CONTNEB PRN ×2 (21:10→21:20)
[2019-03-17] MEDS ORDERED: ALBU18HF2 INH (21:10)
[2019-03-17] MEDS ORDERED: DOXY100C43 PO (21:10)
[2019-03-17] MEDS ORDERED: PRED20TA PO (21:10)
[2019-03-17 22:33] VITALS: BP 129/87
== END 2019-03-17 22:49 | disposition home or self-care (01) ==
LOC: ER 20:07
DX: J45.901 Unspecified asthma with (acute) exacerbation (principal); J20.9 Acute bronchitis, unspecified; Z87.01 Personal history of pneumonia (recurrent); Z98.890 Other specified postprocedural states; Z88.6 Allergy status to analgesic agent; Z88.1 Allergy status to other antibiotic agents; Z91.010 Allergy to peanuts; Z79.899 Other long term (current) drug therapy
CPT/HCPCS: 94640; 94644; 94760; 99285

== ENCOUNTER 2019-03-27 08:06 | Emergency (ER) | payer MEDICAID ==
[~2019-03-27] VITALS: Ht 162.6 cm; Wt 7.7 kg
[~2019-03-27 08:06] MED LIST changes: +ALBU18HF2 INH; +DOXY100C43 PO
[2019-03-27] MEDS ORDERED: ipratropium/albuterol 3ml nebule NEB ONE (08:30)
[2019-03-27] MEDS ORDERED: triamcinolone acetonide 40mg/ml inj IM ONE (08:30)
[2019-03-27] MEDS ORDERED: albuterol 2.5 MG/3 ML nebule NEB ONE ×2 (09:05→12:45)
[2019-03-27] MEDS ORDERED: magnesium 2GM in 50ml NS 50 ML IV ONE (09:35)
[2019-03-27] MEDS ORDERED: methylPREDNISolone sod succ 125mg/2ml vial IV ONE (09:35)
[2019-03-27] MEDS ORDERED: albuterol 2.5 MG/3 ML nebule CONTNEB PRN (09:35)
--- NOTE | 2019-03-27 10:33 | NUR ---
PT ON CONTINOUS NEB TX. PT HAS HAD 2 RT TX, KENALOG IM, SOLUMEDROL IV, AND MG+. D/T SOB AND WHEEZING. PT STATES HE IS STARTING TO LOOSEN UP AND BREATH BETTER.
--- NOTE | 2019-03-27 11:11 | NUR ---
AMY NOTIFIED OF PT CONTINUED WHEEZING S/P CONTINUE NEB TX
--- NOTE | 2019-03-27 11:23 | NUR ---
AMY IN TO SEE PT FOR RE EVAL. PTS WHEEZING IS IMPROVING. WILL CONTINUE TO MONITOR PTS S/S
--- NOTE | 2019-03-27 12:16 | NUR ---
PT UP TO THE BR
[2019-03-27] MEDS ORDERED: PRED20TA PO (13:01)
[2019-03-27] MEDS ORDERED: FLUT1DIS7 INH (13:01)
[2019-03-27 13:22] VITALS: BP 136/73
== END 2019-03-27 13:25 | disposition home or self-care (01) ==
LOC: ER 08:06
DX: J45.901 Unspecified asthma with (acute) exacerbation (principal); F10.99 Alcohol use, unspecified with unspecified alcohol-induced disorder; Z60.2 Problems related to living alone; Z88.1 Allergy status to other antibiotic agents; Z88.8 Allergy status to other drugs, medicaments and biological substances; Z91.018 Allergy to other foods; Z79.899 Other long term (current) drug therapy; Y90.9 Presence of alcohol in blood, level not specified
CPT/HCPCS: 94640; 94644; 96365; 96372; 96375; 99285; J2930; J3301; J3475; 94760

== ENCOUNTER 2019-09-02 02:06 | Emergency (ER) | payer MEDICAID ==
[~2019-09-02] VITALS: Ht 162.6 cm; Wt 77.3 kg
[~2019-09-02 02:06] MED LIST changes: -DOXY100C43 PO; -PRED20TA PO
[2019-09-02] MEDS ORDERED: predniSONE 20 mg tablet PO ONE (02:20)
[2019-09-02] MEDS ORDERED: ipratropium/albuterol 3ml nebule NEB ONE (02:20)
[2019-09-02] MEDS ORDERED: PRED20TA PO (02:34)
[2019-09-02 02:43] VITALS: BP 138/100
== END 2019-09-02 02:45 | disposition home or self-care (01) ==
LOC: ER 02:06
DX: J45.901 Unspecified asthma with (acute) exacerbation (principal); Z98.890 Other specified postprocedural states; Z60.2 Problems related to living alone; Z72.89 Other problems related to lifestyle; Z88.8 Allergy status to other drugs, medicaments and biological substances; Z88.1 Allergy status to other antibiotic agents; Z91.018 Allergy to other foods; Z91.010 Allergy to peanuts; Z79.899 Other long term (current) drug therapy
CPT/HCPCS: 94640; 99283; J7512; 94760

== ENCOUNTER 2019-10-14 17:11 | Emergency (ER) | payer MEDICAID ==
[~2019-10-14] VITALS: Ht 162.6 cm; Wt 66.0 kg
[2019-10-14] MEDS ORDERED: dexamethasone sod phosphate 10mg/ml inj IM STA (18:28)
[2019-10-14] MEDS ORDERED: CefTRIAXone 1000mg IM Kit (w/lidocaine diluent) IM ONE (18:30)
[2019-10-14] MEDS ORDERED: ipratropium/albuterol 3ml nebule NEB ONE (19:05)
[2019-10-14] MEDS ORDERED: PRED20TA PO ×2 (20:05→20:12)
[2019-10-14] MEDS ORDERED: AZIT500T PO (20:05)
[2019-10-14 20:37] VITALS: BP 130/94
== END 2019-10-14 20:35 | disposition home or self-care (01) ==
LOC: ER 17:12
DX: J45.901 Unspecified asthma with (acute) exacerbation (principal); Z60.2 Problems related to living alone; Z88.8 Allergy status to other drugs, medicaments and biological substances; Z79.899 Other long term (current) drug therapy
CPT/HCPCS: 71046; 94640; 96372; 99284; J0696; J1100; 94760

== ENCOUNTER 2019-12-10 01:36 | Emergency (ER) | payer MEDICAID ==
[~2019-12-10] VITALS: Ht 162.6 cm; Wt 75.0 kg
[~2019-12-10 01:36] MED LIST changes: +PRED20TA PO
[2019-12-10] MEDS ORDERED: albuterol 2.5 MG/3 ML nebule CONTNEB PRN (01:40)
[2019-12-10] MEDS ORDERED: normal saline 1000ML IV soln IVB ONE (01:40)
[2019-12-10] MEDS ORDERED: methylPREDNISolone sod succ 125mg/2ml vial IV ONE (01:40)
[2019-12-10 02:31] VITALS: BP 137/95
[2019-12-10] MEDS ORDERED: PRED20TA PO (02:50)
[2020-01-13] MEDS ORDERED: PRED10TA23 PO (01:27)
== END 2019-12-10 02:59 | disposition home or self-care (01) ==
LOC: ER 01:36
DX: J45.901 Unspecified asthma with (acute) exacerbation (principal); Z60.2 Problems related to living alone; Z72.89 Other problems related to lifestyle; Z88.8 Allergy status to other drugs, medicaments and biological substances; Z88.1 Allergy status to other antibiotic agents; Z79.899 Other long term (current) drug therapy
CPT/HCPCS: 94644; 96374; 99285; J2930; J7030; 94760

== ENCOUNTER → 2020-01-13 | Emergency (ER) | payer MEDICAID ==
[~2020-01-13] VITALS: Ht 162.6 cm; Wt 77.3 kg
[~2020-01-13] MED LIST changes: +PRED10TA23 PO; +ipratropium/albuterol 3ml nebule NEB ONE; +methylPREDNISolone sod succ 125mg/2ml vial IV ONE
[2020-01-13 01:13] VITALS: BP 124/92
== END | disposition home or self-care (01) ==
LOC: ER 01:08
DX: J45.901 Unspecified asthma with (acute) exacerbation (principal); Z98.890 Other specified postprocedural states; Z72.89 Other problems related to lifestyle; Z60.2 Problems related to living alone; Z88.1 Allergy status to other antibiotic agents; Z88.8 Allergy status to other drugs, medicaments and biological substances; Z91.018 Allergy to other foods; Z79.899 Other long term (current) drug therapy
CPT/HCPCS: 36415; 71045; 87635; 94640; 96374; 99284; J2930; 94760

== ENCOUNTER 2020-02-22 19:36 | Inpatient (IN) | payer MEDICAID ==
[~2020-02-22] VITALS: Ht 162.6 cm; Wt 76.0 kg
[~2020-02-22 19:36] MED LIST changes: -PRED10TA23 PO; -ipratropium/albuterol 3ml nebule NEB ONE; -methylPREDNISolone sod succ 125mg/2ml vial IV ONE
[2020-02-22] MEDS ORDERED: albuterol 2.5 MG/3 ML nebule NEB PRN (20:00)
[2020-02-22] MEDS: albuterol 2.5 MG/3 ML nebule CONTNEB PRN ×2 (20:08→22:54)
[2020-02-22] MEDS ORDERED: magnesium 2GM in 50ml NS 50 ML IV ONE (20:35)
[2020-02-22] MEDS ORDERED: methylPREDNISolone sod succ 125mg/2ml vial IV ONE (20:35)
--- NOTE | 2020-02-22 21:05 | NUR ---
Cont Neb stopped just 5 min eary. Upon RT arrival, pt's heart rate showing an increase from 128 to 143, pt is tripodding and having worse sob and wob, I/E wheezing. Pt requesting bipap. ABG via verbal order from Lele BASS
[2020-02-22 21:20] LABS: ABG BASE EXCESS -3.9 mmol/L (-2.0-2.0); ABG HCO3 19.5 mmol/L (22.0-26.0); ABG OXYGEN SATURATION 92.9 % (94-97); ABG PCO2 (T) 32.2 mmHg (35.0-48.0); ABG PO2 (T) 64.6 mmHg (75.0-100.0); ALLEN'S TEST POSITIVE; FCOHb 0.2 % (0.0-3.9); FLOW 3 L/min; FMetHb 0.3 % (0.0-1.5); FO2Hb 92.4 % (94-97); TOTAL HEMOGLOBIN 17.9 G/dl (14.0-18.0)
[2020-02-22] MEDS ORDERED: albuterol 2.5 MG/3 ML nebule CONTNEB PRN (22:20)
[2020-02-23] MEDS ORDERED: PRED20TA PO (00:02)
[2020-02-23] MEDS: normal saline 1000ml 1,000 ML IV SCH (01:06)
--- NOTE | 2020-02-23 01:09 | NUR ---
md verbal for pt off bi-pap, restarted within minutes due pt stating already feeling weak. md aware and restarted
[2020-02-23] MEDS ORDERED: ipratropium 0.5 MG/2.5ML nebule IH ONE (02:00)
[2020-02-23 02:05] LABS: BASOPHILS % (AUTO) 0.2 % (0-1); EOSINOPHILS % (AUTO) 0 % (0-6); HEMATOCRIT 49.7 % (42.0-52.0); HEMOGLOBIN 16.5 g/dl (14.0-17.9); LYMPHOCYTES # (AUTO) 0.5 X10'3 (1.1-4.8); LYMPHOCYTES % (AUTO) 3.3 % (21-51); MEAN CORPUSCULAR HEMOGLOBIN 30.7 PG (27.0-31.0); MEAN CORPUSCULAR HGB CONC 33.1 g/dL (33.0-36.5); MEAN CORPUSCULAR VOLUME 92.7 FL (78-98); MEAN PLATELET VOLUME 9.4 FL (7.4-10.4); MONOCYTES # (AUTO) 0.1 X10'3 (0-0.9); MONOCYTES % (AUTO) 0.9 % (2-12); NEUTROPHILS % (AUTO) 95.6 % (42-75); PLATELET COUNT 169 X10'3 (140-440); RED BLOOD COUNT 5.36 X10'6 (4.70-6.10); RED CELL DISTRIBUTION WIDTH 14.2 % (11.5-14.5); WHITE BLOOD COUNT 15.6 X10'3 (4.5-11.0)
[2020-02-23 02:07] LABS: ALANINE AMINOTRANSFERASE 122 U/L (12-78); ALKALINE PHOSPHATASE 71 IU/L (46-116); ANION GAP 15 (8-16); ASPARTATE AMINO TRANSFERASE 34 U/L (10-37); BILIRUBIN,TOTAL 0.5 MG/DL (0.1-1.0); BLOOD UREA NITROGEN 19 MG/DL (7-18); BUN/CREATININE RATIO 13.7 (5.4-32.0); CALCIUM 8.7 MG/DL (8.5-10.1); CHLORIDE 104 MMOL/L (99-107); CREATININE 1.39 MG/DL (0.60-1.10); GLUCOSE 176 MG/DL (70-104); POTASSIUM 3.9 MMOL/L (3.5-5.1); SODIUM 141 MMOL/L (135-145); TOTAL CARBON DIOXIDE 21.8 MMOL/L (24-32); TOTAL PROTEIN 7.9 G/DL (6.4-8.2); eGFR 56 ML/MIN
[2020-02-23] MEDS: albuterol 2.5 MG/3 ML nebule CONTNEB PRN ×2 (02:17→03:36)
--- NOTE | 2020-02-23 02:20 | NUR ---
relieving RN for break, pt is sitting on bed, high acosta's, RT at bedside to give pt treatment
[2020-02-23] MEDS ORDERED: CefTRIAXone 2gm/D5W 50ml BAG 50 ML IV ONE (02:25)
[2020-02-23] MEDS ORDERED: azithromycin 250mg tablet PO ONE (02:25)
[2020-02-23] MEDS ORDERED: LORazepam 2 mg/ml vial IV ONE ×2 (02:55→04:35)
[2020-02-23] MEDS ORDERED: furosemide 10 MG/1 ML 10ml inj IV ONE (02:55)
[2020-02-23] MEDS ORDERED: nitroGLYCERIN 0.4mg/hour patch TD ONE (02:55)
[2020-02-23] MEDS ORDERED: methylPREDNISolone sod succ 125mg/2ml vial IV ONE (03:35)
[2020-02-23] MEDS ORDERED: albuterol 2.5 MG/3 ML nebule CONTNEB PRN ×2 (03:35→12:00)
[2020-02-23 03:48] LABS: D-DIMER < 0.19 MG/L FEU (0-0.50)
[2020-02-23 03:53] LABS: TROPONIN I < 0.04 NG/ML (0.0-0.05)
[2020-02-23] MEDS ORDERED: normal saline 1000ML IV soln IVB ONE (04:15)
[2020-02-23] MEDS ORDERED: magnesium 2GM in 50ml NS 50 ML IV ONE (04:35)
[2020-02-23 05:01] LABS: URINE AMPHETAMINE SCREEN NEGATIVE (Neg); URINE BARBITUATE SCREEN NEGATIVE (Neg); URINE BENZODIAZEPINES SCREEN NEGATIVE (Neg); URINE CANNABINOID SCREEN NEGATIVE (Neg); URINE COCAINE SCREEN NEGATIVE (Neg); URINE METHADONE SCREEN NEGATIVE (Neg); URINE OPIATE SCREEN NEGATIVE (Neg); URINE PHENCYCLIDINE SCREEN NEGATIVE (Neg)
[2020-02-23] MEDS ORDERED: potassium Cl 20 mEq SR tablet PO PRN ×2 (05:10)
[2020-02-23] MEDS ORDERED: magnesium Cl slow-release 64mg tablet PO PRN (05:10)
[2020-02-23] MEDS ORDERED: potassium CL 10mEq/100ml bag 100 ML IV PRN ×2 (05:10)
[2020-02-23] MEDS ORDERED: ondansetron/PF 4mg/2ml inj IV PRN (05:10)
[2020-02-23] MEDS ORDERED: magnesium 4gm in 100ml NS 100 ML IV PRN (05:10)
[2020-02-23] MEDS ORDERED: magnesium 2GM in 50ml NS 50 ML IV PRN (05:10)
[2020-02-23] MEDS ORDERED: acetaminophen 325mg tablet PO PRN (05:10)
[2020-02-23] MEDS ORDERED: morphine 2 MG/ML inj. syringe IV PRN (05:10)
[2020-02-23] MEDS ORDERED: mag hydrox/Alum hydrox/simeth 30ml oral suspension PO PRN (05:10)
[2020-02-23] MEDS ORDERED: HYDROcodone/acetaminophen 5mg/325mg tablet PO PRN (05:10)
[2020-02-23 07:23] VITALS: BP 128/76
[2020-02-23] MEDS: CefTRIAXone 2gm/D5W 50ml BAG 50 ML IV SCH (07:43)
[2020-02-23] MEDS: docusate sod 100mg capsule PO SCH ×2 (07:43→19:28)
[2020-02-23] MEDS: heparin, porcine 5000 units/ml vial SQ SCH ×2 (07:44→19:28)
[2020-02-23] MEDS: K and/or MAG REPLACEMENT MC SCH ×2 (07:44→19:28)
[2020-02-23] MEDS ORDERED: methylPREDNISolone sod succ 125mg/2ml vial IV SCH (08:00)
[2020-02-23] MEDS ORDERED: albuterol 2.5 MG/3 ML nebule NEB SCH (08:00)
--- NOTE | 2020-02-23 09:23 | NUR ---
promotional table spacer PAGER ID: [phone] MESSAGE: Marianna Abbott. Critical lactic of 9.7, Natalie [id number]
--- NOTE | 2020-02-23 09:39 | NUR ---
SPoke to lab regarding blood cultures, was told they have one drawn from 0500, and could only get one. The patient was receiving abx when they jun the second at 0800.
[2020-02-23] MEDS ORDERED: normal saline 1000ml 1,000 ML IVB ONE (10:25)
[2020-02-23] MEDS: methylPREDNISolone sod succ 125mg/2ml vial IV SCH ×3 (10:30→19:27)
[2020-02-23] MEDS: ipratropium/albuterol 3ml nebule NEB SCH ×4 (10:51→22:52)
[2020-02-23 11:00] VITALS: BP 116/75
--- NOTE | 2020-02-23 11:30 | NUR ---
PAGER ID: [phone] MESSAGE: Rm 3013B, Marianna. Repeat lactic is 6.3, pt is long-term through the 1L bolus. Natalie [id number]
[2020-02-23 12:18] LABS: CLARITY,URINE CLEAR (Clear); COLOR,URINE STRAW (Yellow); GLUCOSE, URINE 100 mg/dl (Neg); KETONES,URINE TRACE mg/dl (Neg); LEUKOCYTE ESTERASE ,URINE NEGATIVE (Neg); NITRITES, URINE NEGATIVE (Neg); OCCULT BLOOD,URINE NEGATIVE (Neg); PROTEIN,URINE NEGATIVE (Neg); UROBILINOGEN,URINE 0.2 E.U/dL (0.2-1.0)
[2020-02-23 12:29] LABS: UA COLLECTION TYPE CLN CATCH MIDSTREAM
[2020-02-23] MEDS ORDERED: FLUT1BLS11 (12:49)
[2020-02-23] MEDS ORDERED: PRED10TA PO (12:49)
--- NOTE | 2020-02-23 13:50 | NUR ---
promotional table spacer PAGER ID: [phone] MESSAGE: Rm 3013B, Marianna. FYI: pt's HR up to 150s briefly now sustaining in the 120s. BP116/75, just finished cont. neb. Pt up and walking at the time. Natalie [phone]
[2020-02-23] MEDS ORDERED: ipratropium/albuterol 3ml nebule NEB PRN (13:55)
[2020-02-23 15:00] VITALS: BP 122/76
[2020-02-23 18:00] VITALS: BP 151/82
--- NOTE | 2020-02-23 18:22 | NUR ---
Problems reprioritized. Patient report given, questions answered & plan of care reviewed with Nathalie HERNANDEZ.
[2020-02-23] MEDS: lactobacillus rhamnosus 10,000 MMU CELLS/CAPSULE PO SCH (19:28)
[2020-02-23] MEDS ORDERED: temazepam 15mg capsule PO PRN (21:00)
[2020-02-23 22:00] VITALS: BP 120/63
[2020-02-24] MEDS: methylPREDNISolone sod succ 125mg/2ml vial IV SCH ×4 (01:06→19:40)
[2020-02-24] MEDS: normal saline 1000ml 1,000 ML IV SCH ×3 (01:06→12:43)
[2020-02-24 02:00] VITALS: BP 102/65
[2020-02-24] MEDS: ipratropium/albuterol 3ml nebule NEB SCH ×6 (02:43→23:30)
[2020-02-24 04:53] LABS: BASOPHILS % (AUTO) 0.1 % (0-1); EOSINOPHILS % (AUTO) 0 % (0-6); HEMATOCRIT 44.8 % (42.0-52.0); HEMOGLOBIN 14.5 g/dl (14.0-17.9); LYMPHOCYTES % (AUTO) 5.1 % (21-51); MEAN CORPUSCULAR HEMOGLOBIN 30.3 PG (27.0-31.0); MEAN CORPUSCULAR HGB CONC 32.4 g/dL (33.0-36.5); MEAN CORPUSCULAR VOLUME 93.3 FL (78-98); MONOCYTES # (AUTO) 0.6 X10'3 (0-0.9); NEUTROPHILS # (AUTO) 17.9 X10'3 (1.8-7.7); NEUTROPHILS % (AUTO) 91.8 % (42-75); PLATELET COUNT 168 X10'3 (140-440); RED CELL DISTRIBUTION WIDTH 14.3 % (11.5-14.5); WHITE BLOOD COUNT 19.5 X10'3 (4.5-11.0)
[2020-02-24 05:05] LABS: ALANINE AMINOTRANSFERASE 92 U/L (12-78); ALBUMIN 3.3 G/DL (3.4-5.0); ALKALINE PHOSPHATASE 49 IU/L (46-116); ANION GAP 9 (8-16); ASPARTATE AMINO TRANSFERASE 27 U/L (10-37); BILIRUBIN,TOTAL 0.5 MG/DL (0.1-1.0); BLOOD UREA NITROGEN 20 MG/DL (7-18); BUN/CREATININE RATIO 18.5 (5.4-32.0); CALCIUM 8.2 MG/DL (8.5-10.1); CHLORIDE 107 MMOL/L (99-107); CREATININE 1.08 MG/DL (0.60-1.10); GLUCOSE 152 MG/DL (70-104); MAGNESIUM 2.6 MG/DL (1.5-2.4); SODIUM 144 MMOL/L (135-145); TOTAL CARBON DIOXIDE 27.8 MMOL/L (24-32); TOTAL PROTEIN 6.5 G/DL (6.4-8.2); eGFR 75 ML/MIN
[2020-02-24 07:00] VITALS: BP 112/78
[2020-02-24] MEDS: lactobacillus rhamnosus 10,000 MMU CELLS/CAPSULE PO SCH ×2 (07:38→19:31)
[2020-02-24] MEDS: docusate sod 100mg capsule PO SCH ×2 (07:38→19:31)
[2020-02-24] MEDS: azithromycin 250mg tablet PO SCH (07:38)
--- NOTE | 2020-02-24 07:40 | NUR ---
Rm 3013B, Saefokatelyn, Pt needs breathing treatment, wheezy, SOB. Thank you
[2020-02-24] MEDS: heparin, porcine 5000 units/ml vial SQ SCH ×2 (08:00→19:47)
[2020-02-24] MEDS: K and/or MAG REPLACEMENT MC SCH ×2 (08:00→20:00)
[2020-02-24] MEDS: CefTRIAXone 2gm/D5W 50ml BAG 50 ML IV SCH (08:00)
[2020-02-24] MEDS ORDERED: FLU VACC QS2020-21(6MOS UP)/PF 60 MCG/0.5 ML SYRINGE IMVAC ONE (10:00)
[2020-02-24 11:00] VITALS: BP 126/60
[2020-02-24 16:00] VITALS: BP 129/74
[2020-02-24 18:00] VITALS: BP 102/70
--- NOTE | 2020-02-24 18:35 | NUR ---
Problems reprioritized. Patient report given, questions answered & plan of care reviewed with Trinh HERNANDEZ.
--- NOTE | 2020-02-24 18:40 | NUR ---
Patient in room PCU 3013. I have received report from MIKAL HERNANDEZ and had the opportunity to ask questions and assume patient care.
[2020-02-24 22:00] VITALS: BP 128/72
[2020-02-25] MEDS: methylPREDNISolone sod succ 125mg/2ml vial IV SCH ×2 (01:50→08:32)
[2020-02-25 02:00] VITALS: BP 121/66
[2020-02-25] MEDS: ipratropium/albuterol 3ml nebule NEB SCH ×3 (03:18→11:41)
[2020-02-25] MEDS: normal saline 1000ml 1,000 ML IV SCH (04:42)
[2020-02-25 05:47] LABS: BASOPHILS % (AUTO) 0 % (0-1); EOSINOPHILS % (AUTO) 0 % (0-6); HEMATOCRIT 42.9 % (42.0-52.0); HEMOGLOBIN 14.2 g/dl (14.0-17.9); LYMPHOCYTES # (AUTO) 0.9 X10'3 (1.1-4.8); LYMPHOCYTES % (AUTO) 5.2 % (21-51); MEAN CORPUSCULAR HEMOGLOBIN 30.8 PG (27.0-31.0); MEAN CORPUSCULAR HGB CONC 33.2 g/dL (33.0-36.5); MEAN CORPUSCULAR VOLUME 92.9 FL (78-98); MEAN PLATELET VOLUME 9.1 FL (7.4-10.4); MONOCYTES # (AUTO) 0.4 X10'3 (0-0.9); MONOCYTES % (AUTO) 2.3 % (2-12); NEUTROPHILS # (AUTO) 15.2 X10'3 (1.8-7.7); NEUTROPHILS % (AUTO) 92.5 % (42-75); PLATELET COUNT 166 X10'3 (140-440); RED BLOOD COUNT 4.62 X10'6 (4.70-6.10); RED CELL DISTRIBUTION WIDTH 14.2 % (11.5-14.5); WHITE BLOOD COUNT 16.5 X10'3 (4.5-11.0)
[2020-02-25 06:00] VITALS: BP 119/72
[2020-02-25 06:13] LABS: ALANINE AMINOTRANSFERASE 83 U/L (12-78); ALKALINE PHOSPHATASE 52 IU/L (46-116); ANION GAP 8 (8-16); ASPARTATE AMINO TRANSFERASE 22 U/L (10-37); BILIRUBIN,TOTAL 0.4 MG/DL (0.1-1.0); BLOOD UREA NITROGEN 21 MG/DL (7-18); BUN/CREATININE RATIO 24.4 (5.4-32.0); CALCIUM 7.5 MG/DL (8.5-10.1); CHLORIDE 108 MMOL/L (99-107); CREATININE 0.86 MG/DL (0.60-1.10); GLUCOSE 150 MG/DL (70-104); MAGNESIUM 2.4 MG/DL (1.5-2.4); POTASSIUM 4.1 MMOL/L (3.5-5.1); SODIUM 142 MMOL/L (135-145); TOTAL CARBON DIOXIDE 25.7 MMOL/L (24-32); eGFR > 90 ML/MIN
--- NOTE | 2020-02-25 06:19 | NUR ---
Patient in room PCU 3013B. I have received report from Marlys Frankel and had the opportunity to ask questions and assume patient care.
--- NOTE | 2020-02-25 06:30 | NUR ---
Problems reprioritized. Patient report given, questions answered & plan of care reviewed with MARGE HERNANDEZ.
--- NOTE | 2020-02-25 06:31 | NUR ---
Patient in room PCU 3013. I have received report from Marlys Frankel RN and had the opportunity to ask questions and assume patient care. Patient awake and resting. Offers no complaints. All immediate needs met at this time.
[2020-02-25] MEDS: heparin, porcine 5000 units/ml vial SQ SCH (08:00)
[2020-02-25] MEDS: K and/or MAG REPLACEMENT MC SCH (08:00)
[2020-02-25] MEDS: azithromycin 250mg tablet PO SCH (08:31)
[2020-02-25] MEDS: docusate sod 100mg capsule PO SCH (08:31)
[2020-02-25] MEDS: lactobacillus rhamnosus 10,000 MMU CELLS/CAPSULE PO SCH (08:31)
[2020-02-25] MEDS: CefTRIAXone 2gm/D5W 50ml BAG 50 ML IV SCH (08:33)
[2020-02-25] MEDS ORDERED: AZI25OT PO (10:08)
[2020-02-25] MEDS ORDERED: CEFD300C3 PO (10:08)
[2020-02-25] MEDS ORDERED: LACT1CAP26 PO (10:08)
[2020-02-25 11:00] VITALS: BP 124/74
--- NOTE | 2020-02-25 11:40 | NUR ---
Paged Dr. Dey: PAGER ID: [phone] MESSAGE: RE: Lewis Cabral [id number]. FYI repeat lactic 2.4 Received d/c orders for patient. Thank you.
--- NOTE | 2020-02-25 13:25 | NUR ---
Patient stable for discharge per MD orders. All discharge instructions reviewed with patient and all questions answered. Patient to follow up with PCP in 2-3 days time. New prescriptions sent electronically to [facility] on [address]. Patient educated on new medications prescribed. PIV discontinued - cannula intact. Telemetry monitoring discontinued. All patient belongings packed up and sent with patient in private vehicle to home. Patient walked to [facility] [place] by RN.
--- NOTE | 2020-02-25 13:39 | NUR ---
[place] documentation: I have reviewed and agree with all interventions, assessments performed and documented by DAVID Frias. [place] Medication Administration: For this medication-pass time frame, all medication were reviewed, dispensed, administered and documented per hospital policy by DAVID Frias.
== END 2020-02-25 13:24 | disposition home or self-care (01) | DRG 133 ==
LOC: ER 19:36 → ED HOLD 02-23 05:08 → PCU 3S 02-23 07:23
PROVIDERS: ADMIT Internal Medicine; ATTEND Internal Medicine
PROC: 5A09357 Assistance with Respiratory Ventilation, Less than 24 Consecutive Hours, Continuous Positive Airway Pressure (ICD-10-PCS; principal; 2020-02-22)
PROC: 3E02340 Introduction of Influenza Vaccine into Muscle, Percutaneous Approach (ICD-10-PCS; 2020-02-24)
DX: J96.00 Acute respiratory failure, unspecified whether with hypoxia or hypercapnia (principal); J45.901 Unspecified asthma with (acute) exacerbation; N18.30 Chronic kidney disease, stage 3 unspecified; Z20.828 Contact with and (suspected) exposure to other viral communicable diseases; N17.9 Acute kidney failure, unspecified; E86.0 Dehydration; E87.2 Acidosis; Z23 Encounter for immunization; Z88.8 Allergy status to other drugs, medicaments and biological substances; Z82.5 Family history of asthma and other chronic lower respiratory diseases; Z80.9 Family history of malignant neoplasm, unspecified
CPT/HCPCS: 36415; 36600; 71045; 80053; 80305; 81003; 82803; 83605; 83735; 83880; 84145; 84484; 85018; 85025; 85379; 87040; 87081; 87635; 94640; 94660; 94760; 94799; 96365; 96375; 99285; A7015; C9803; G0378; J0696; J1940; J2060; J2270; J2930; J3475; J7030

== ENCOUNTER 2020-06-10 02:37 | Emergency (ER) | payer MEDICAID ==
[~2020-06-10] VITALS: Ht 162.6 cm; Wt 77.3 kg
[~2020-06-10 02:37] MED LIST changes: -ALBU18HF2 INH; -ALBU8.5H8 IH; +AZI25OT PO; -FLUT100D2 INH; -FLUT1AER4; +FLUT1BLS11; -FLUT1DIS7 INH; -INHA1INH2; +LACT1CAP26 PO; +PRED10TA PO; -PRED20TA PO
[2020-06-10] MEDS ORDERED: methylPREDNISolone sod succ 125mg/2ml vial IV ONE (03:35)
[2020-06-10] MEDS ORDERED: triamcinolone acetonide 40mg/ml inj IM ONE (03:35)
[2020-06-10] MEDS ORDERED: ipratropium/albuterol 3ml nebule NEB ONE (04:00)
[2020-06-10] MEDS ORDERED: OXYM-21 BOTHNARES (04:18)
[2020-06-10 04:26] VITALS: BP 129/89
== END 2020-06-10 04:28 | disposition home or self-care (01) ==
LOC: ER 02:37
DX: J45.901 Unspecified asthma with (acute) exacerbation (principal); R09.81 Nasal congestion; Z87.01 Personal history of pneumonia (recurrent); Z72.89 Other problems related to lifestyle; Z60.2 Problems related to living alone; Z98.890 Other specified postprocedural states; Z88.1 Allergy status to other antibiotic agents; Z88.8 Allergy status to other drugs, medicaments and biological substances; Z91.010 Allergy to peanuts; Z91.018 Allergy to other foods; Z79.2 Long term (current) use of antibiotics; Z79.899 Other long term (current) drug therapy
CPT/HCPCS: 94640; 96372; 96374; 99284; J2930; J3301; 94760

== ENCOUNTER 2022-10-28 22:04 | Emergency (ER) | payer MEDICAID ==
[~2022-10-28] VITALS: Ht 162.6 cm; Wt 75.0 kg
[~2022-10-28 22:04] MED LIST changes: +ALBU6.7H14 INH; -ALBU6.7H9 INH; +OXYM-21 BOTHNARES
[2022-10-28] MEDS ORDERED: normal saline 1000ML IV soln IVB ONE (22:50)
[2022-10-28] MEDS ORDERED: ipratropium 0.5 MG/2.5ML nebule IH ONE (22:50)
[2022-10-28] MEDS ORDERED: methylPREDNISolone sod succ 125mg/2ml vial IV ONE (22:50)
[2022-10-28] MEDS ORDERED: normal saline 1000ml 1,000 ML IV ONE (22:50)
[2022-10-28 23:00] VITALS: BP 116/68
[2022-10-28] MEDS: albuterol 2.5 MG/3 ML nebule CONTNEB PRN (23:02)
[2022-10-28 23:25] LABS: EOSINOPHILS # (AUTO) 0.9 X10'3 (0-0.9); HEMOGLOBIN 16.2 g/dl (14.0-17.9); LYMPHOCYTES # (AUTO) 1.9 X10'3 (1.1-4.8); MEAN CORPUSCULAR VOLUME 94.3 FL (78-98); MONOCYTES # (AUTO) 0.8 X10'3 (0-0.9)
[2022-10-28 23:29] LABS: D-DIMER 0.57 MG/L FEU (0-0.50)
[2022-10-28 23:35] LABS: ALANINE AMINOTRANSFERASE 125 U/L (12-78); ALBUMIN 3.8 G/DL (3.4-5.0); ALBUMIN/GLOBULIN RATIO 0.9 (1.1-1.5); ALKALINE PHOSPHATASE 74 IU/L (46-116); ANION GAP 11 (8-16); ASPARTATE AMINO TRANSFERASE 71 U/L (10-37); BILIRUBIN,TOTAL 0.5 MG/DL (0.1-1.0); BLOOD UREA NITROGEN 19 MG/DL (7-18); BUN/CREATININE RATIO 13.6 (10.0-20.0); CALCIUM 8.8 MG/DL (8.5-10.1); CHLORIDE 107 MMOL/L (99-107); GLUCOSE 117 MG/DL (70-104); POTASSIUM 3.1 MMOL/L (3.5-5.1); SODIUM 143 MMOL/L (135-145); TOTAL CARBON DIOXIDE 25.3 MMOL/L (24-32); TOTAL PROTEIN 7.9 G/DL (6.4-8.2); eGFR 55 ML/MIN
[2022-10-28 23:44] LABS: BASOPHILS % (AUTO) 0.7 % (0-1); EOSINOPHILS % (AUTO) 14.1 % (0-6); HEMATOCRIT 47.5 % (42.0-52.0); LYMPHOCYTES % (AUTO) 31.7 % (21-51); MEAN CORPUSCULAR HEMOGLOBIN 32.1 PG (27.0-31.0); MEAN PLATELET VOLUME 9.9 FL (7.4-10.4); MONOCYTES % (AUTO) 12.8 % (2-12); NEUTROPHILS # (AUTO) 2.5 X10'3 (1.8-7.7); NEUTROPHILS % (AUTO) 40.7 % (42-75); PLATELET COUNT 145 X10'3 (140-440); RED BLOOD COUNT 5.03 X10'6 (4.70-6.10); WHITE BLOOD COUNT 6.1 X10'3 (4.5-11.0)
[2022-10-29] MEDS ORDERED: albuterol 2.5 MG/3 ML nebule CONTNEB PRN (00:15)
[2022-10-29] MEDS ORDERED: ipratropium 0.5 MG/2.5ML nebule IH ONE (00:15)
[2022-10-29] MEDS: albuterol 2.5 MG/3 ML nebule CONTNEB PRN (00:17)
[2022-10-29] MEDS ORDERED: azithromycin 250mg tablet PO ONE (01:45)
[2022-10-29] MEDS ORDERED: CefTRIAXone/D5W-Rocephin 1gm 50 ML IV ONE (01:45)
[2022-10-29] MEDS ORDERED: iohexol 350MG/ML 100ml bottle IV ONE (01:56)
[2022-10-29] MEDS ORDERED: PRED20TA PO (03:27)
[2022-10-29] MEDS ORDERED: AZIT-164 PO (03:27)
== END 2022-10-29 04:04 | disposition home or self-care (01) ==
LOC: ER 22:05
DX: J45.901 Unspecified asthma with (acute) exacerbation (principal); Z20.822 Contact with and (suspected) exposure to COVID-19; Z88.6 Allergy status to analgesic agent; Z88.1 Allergy status to other antibiotic agents; Z79.899 Other long term (current) drug therapy
CPT/HCPCS: 36415; 71045; 71275; 80053; 83605; 83880; 84484; 85025; 85379; 87040; 87811; 93005; 94640; 94644; 94645; 96361; 96365; 96366; 96375; 99285; J0696; J2930; J3490; J7030; Q9967; 94760

== ENCOUNTER 2022-12-19 02:57 | Inpatient (IN) | payer MEDICAID ==
[2022-12-19] VITALS (15 sets, daily range): BP systolic 121–142; BP diastolic 65–90; PULSE 76–113; RESP 14–24; TEMP 97.5–98.3; O2SAT 76–95
[~2022-12-19] VITALS: Ht 162.6 cm; Wt 72.7 kg
[~2022-12-19 02:57] MED LIST changes: +AZIT-164 PO
[2022-12-19 03:30] LABS: BASOPHILS % (AUTO) 0.4 % (0-1); EOSINOPHILS % (AUTO) 18.3 % (0-6); HEMATOCRIT 47.9 % (42.0-52.0); HEMOGLOBIN 15.9 g/dl (14.0-17.9); LYMPHOCYTES # (AUTO) 2.8 X10'3 (1.1-4.8); LYMPHOCYTES % (AUTO) 51.7 % (21-51); MEAN CORPUSCULAR HEMOGLOBIN 31.1 PG (27.0-31.0); MEAN CORPUSCULAR HGB CONC 33.1 g/dL (33.0-36.5); MEAN CORPUSCULAR VOLUME 94.2 FL (78-98); MEAN PLATELET VOLUME 9.7 FL (7.4-10.4); MONOCYTES # (AUTO) 0.5 X10'3 (0-0.9); MONOCYTES % (AUTO) 9.5 % (2-12); NEUTROPHILS # (AUTO) 1.1 X10'3 (1.8-7.7); NEUTROPHILS % (AUTO) 20.1 % (42-75); PLATELET COUNT 115 X10'3 (140-440); RED BLOOD COUNT 5.09 X10'6 (4.70-6.10); RED CELL DISTRIBUTION WIDTH 13.6 % (11.5-14.5); WHITE BLOOD COUNT 5.4 X10'3 (4.5-11.0)
[2022-12-19 03:43] LABS: ALANINE AMINOTRANSFERASE 72 U/L (12-78); ALBUMIN 3.4 G/DL (3.4-5.0); ALBUMIN/GLOBULIN RATIO 1.1 (1.1-1.5); ALKALINE PHOSPHATASE 87 IU/L (46-116); ANION GAP 7 (8-16); ASPARTATE AMINO TRANSFERASE 46 U/L (10-37); BILIRUBIN,TOTAL 0.7 MG/DL (0.1-1.0); BLOOD UREA NITROGEN 21 MG/DL (7-18); BUN/CREATININE RATIO 16.3 (10.0-20.0); CALCIUM 8.8 MG/DL (8.5-10.1); CHLORIDE 109 MMOL/L (99-107); CREATININE 1.29 MG/DL (0.60-1.10); GLUCOSE 126 MG/DL (70-104); POTASSIUM 3.2 MMOL/L (3.5-5.1); SODIUM 144 MMOL/L (135-145); TOTAL CARBON DIOXIDE 28.5 MMOL/L (24-32); TOTAL PROTEIN 6.6 G/DL (6.4-8.2); eCRCL 61 ML/MIN; eGFR 61 ML/MIN
[2022-12-19 03:49] LABS: PRO BRAIN NATRIURETIC PEPTIDE < 30 PG/ML (0-125)
[2022-12-19] MEDS ORDERED: ipratropium 0.5 MG/2.5ML nebule IH ONE (03:55)
[2022-12-19] MEDS ORDERED: normal saline 1000ML IV soln IVB ONE (03:55)
[2022-12-19] MEDS ORDERED: magnesium 2GM in 50ml NS 50 ML IV ONE (03:55)
[2022-12-19] MEDS ORDERED: albuterol 2.5 MG/3 ML nebule CONTNEB PRN (03:55)
[2022-12-19] MEDS ORDERED: methylPREDNISolone sod succ 125mg/2ml vial IV ONE (03:55)
[2022-12-19] MEDS ORDERED: terbutaline 1 mg/ml inj SQ STA (03:55)
[2022-12-19] MEDS ORDERED: ondansetron/PF 4mg/2ml inj IV PRN (04:00)
[2022-12-19] MEDS ORDERED: guaiFENesin/DM 10ml UD oral syrup PO ONE (04:00)
[2022-12-19] MEDS ORDERED: magnesium 2GM in 50ml NS 50 ML IV PRN (04:00)
[2022-12-19] MEDS ORDERED: acetaminophen 325mg tablet PO PRN (04:00)
[2022-12-19] MEDS ORDERED: potassium Cl 40MEQ/1/2NS 520ml 520 ML IV PRN (04:00)
[2022-12-19] MEDS ORDERED: magnesium Cl slow-release 64mg tablet PO PRN (04:00)
[2022-12-19] MEDS ORDERED: potassium Cl 20 mEq SR tablet PO PRN ×2 (04:00)
[2022-12-19] MEDS ORDERED: normal saline 1000ml 1,000 ML IV SCH (04:00)
[2022-12-19] MEDS ORDERED: magnesium 4gm in 100ml NS 100 ML IV PRN (04:00)
[2022-12-19] MEDS ORDERED: potassium Cl 20 mEq SR tablet PO STA (04:03)
[2022-12-19 04:11] LABS: APTT 29 SECONDS (22-32); INR 1.1 INR; PROTHROMBIN TIME 11.4 SECONDS (9.0-12.0)
[2022-12-19 04:32] LABS: PLATELET ESTIMATE DECREASED; TOTAL CELLS COUNTED 100
[2022-12-19] MEDS ORDERED: IPRA3AMP31 (04:34)
[2022-12-19] MEDS ORDERED: FLUT16SP26 (04:34)
[2022-12-19] MEDS: ipratropium/albuterol 3ml nebule NEB SCH ×5 (07:00→22:51)
--- NOTE | 2022-12-19 07:01 | NUR ---
Attempted to give report to the nurse, the staff who answered said she could not find the nurse at the moment and would have the nurse call me back
--- NOTE | 2022-12-19 07:16 | NUR ---
received report from jacque rutherford rn
[2022-12-19] MEDS: K and/or MAG REPLACEMENT MC SCH ×2 (07:31→20:00)
[2022-12-19] MEDS: methylPREDNISolone sod succ/PF 40mg inj. IV SCH ×2 (08:00→19:41)
[2022-12-19 08:16] LABS: MAGNESIUM 2.5 MG/DL (1.5-2.4); POTASSIUM 3.7 MMOL/L (3.5-5.1); PRO BRAIN NATRIURETIC PEPTIDE < 30 PG/ML (0-125)
[2022-12-19 08:44] LABS: MODE NC
[2022-12-19 08:45] LABS: ABG BASE EXCESS -0.1 mmol/L (-2.0-2.0); ABG HCO3 26.6 mmol/L (22.0-26.0); ABG PCO2 (T) 50.6 mmHg (35.0-48.0); ABG PH (T) 7.339 (7.340-7.440); ABG PO2 (T) 54.2 mmHg (75.0-100.0); RESPIRATORY RATE (OBSERVED) 14 b/min
[2022-12-19 08:46] LABS: FCOHb 0.5 % (0.0-3.9); FHHb 12.9 % (0.0-5.0); FMetHb 0.4 % (0.0-1.5); FO2Hb 86.2 % (94-97); TOTAL HEMOGLOBIN 16.4 G/dl (14.0-17.9)
--- NOTE | 2022-12-19 18:12 | NUR ---
GAVE REPORT TO DAVID FU
[2022-12-19] MEDS ORDERED: temazepam 15mg capsule PO PRN (21:00)
[2022-12-20] MEDS: ipratropium/albuterol 3ml nebule NEB SCH ×3 (03:00→10:38)
[2022-12-20 05:04] VITALS: PULSE 102; RESP 20; O2SAT 88
[2022-12-20 05:09] VITALS: PULSE 103; RESP 18
[2022-12-20 06:00] VITALS: BP 131/78; PULSE 105; RESP 20; TEMP 97.6; O2SAT 90
--- NOTE | 2022-12-20 06:39 | NUR ---
Problems reprioritized. Patient report given, questions answered & plan of care reviewed with DAVID MAST.
[2022-12-20 07:32] LABS: ALBUMIN 3.3 G/DL (3.4-5.0); ANION GAP 8 (8-16); BLOOD UREA NITROGEN 13 MG/DL (7-18); BUN/CREATININE RATIO 13.5 (10.0-20.0); CALCIUM 8.3 MG/DL (8.5-10.1); CHLORIDE 108 MMOL/L (99-107); CREATININE 0.96 MG/DL (0.60-1.10); GLUCOSE 134 MG/DL (70-104); MAGNESIUM 2.2 MG/DL (1.5-2.4); POTASSIUM 4.2 MMOL/L (3.5-5.1); SODIUM 142 MMOL/L (135-145); TOTAL CARBON DIOXIDE 25.6 MMOL/L (24-32); eCRCL 82 ML/MIN; eGFR 85 ML/MIN
[2022-12-20 07:49] LABS: BASOPHILS % (AUTO) 0.1 % (0-1); EOSINOPHILS % (AUTO) 0 % (0-6); HEMOGLOBIN 15.5 g/dl (14.0-17.9); LYMPHOCYTES # (AUTO) 1.1 X10'3 (1.1-4.8); LYMPHOCYTES % (AUTO) 8.1 % (21-51); MEAN CORPUSCULAR HEMOGLOBIN 31.3 PG (27.0-31.0); MEAN CORPUSCULAR VOLUME 94.8 FL (78-98); MEAN PLATELET VOLUME 9.7 FL (7.4-10.4); MONOCYTES # (AUTO) 0.6 X10'3 (0-0.9); MONOCYTES % (AUTO) 4.3 % (2-12); NEUTROPHILS # (AUTO) 11.5 X10'3 (1.8-7.7); NEUTROPHILS % (AUTO) 87.5 % (42-75); PLATELET COUNT 125 X10'3 (140-440); RED BLOOD COUNT 4.96 X10'6 (4.70-6.10); RED CELL DISTRIBUTION WIDTH 13.8 % (11.5-14.5); WHITE BLOOD COUNT 13.1 X10'3 (4.5-11.0)
[2022-12-20] MEDS: K and/or MAG REPLACEMENT MC SCH (08:00)
[2022-12-20] MEDS: methylPREDNISolone sod succ/PF 40mg inj. IV SCH (08:15)
[2022-12-20 10:00] VITALS: BP 139/90; PULSE 86; RESP 18; TEMP 97.9; O2SAT 92
[2022-12-20 10:39] VITALS: PULSE 86; RESP 16; O2SAT 90
[2022-12-20 10:45] VITALS: PULSE 72; RESP 20
[2022-12-20] MEDS ORDERED: PRED20TA PO (12:07)
--- NOTE | 2022-12-20 12:44 | NUR ---
pt d/c with instructions, understanding of instructions, and with all belongings walking out to private vehicle to follow up with pcp.
== END 2022-12-20 12:40 | disposition home or self-care (01) | DRG 133 ==
LOC: ER 02:57 → ED HOLD 04:03 → EDBEDREQ 05:00 → ORTHO 4S 07:45
PROVIDERS: ADMIT Internal Medicine; ATTEND Family Medicine
DX: J96.01 Acute respiratory failure with hypoxia (principal); J45.902 Unspecified asthma with status asthmaticus; Z88.1 Allergy status to other antibiotic agents; Z79.899 Other long term (current) drug therapy; Z88.8 Allergy status to other drugs, medicaments and biological substances; Z91.018 Allergy to other foods; Z91.09 Other allergy status, other than to drugs and biological substances; Z82.5 Family history of asthma and other chronic lower respiratory diseases; Z80.9 Family history of malignant neoplasm, unspecified; Z79.4 Long term (current) use of insulin
CPT/HCPCS: 36415; 36600; 71045; 80048; 80053; 82803; 83605; 83735; 83880; 84132; 84484; 85007; 85018; 85025; 85610; 85730; 87040; 87081; 93005; 94640; 94760; 99285; A7015; G0378; J2920; J2930; J3105; J3475; J7030

== ENCOUNTER 2023-01-16 05:42 | Emergency (ER) | payer MEDICAID ==
[~2023-01-16] VITALS: Ht 162.6 cm; Wt 72.7 kg
[~2023-01-16 05:42] MED LIST changes: -ATR0.5NEB NEB; -AZI25OT PO; -AZIT-164 PO; -FEXO1TAB8 PO; +FLUT16SP26; -FLUT1BLS11; +IPRA3AMP31; -LACT1CAP26 PO; -OXYM-21 BOTHNARES; -PRED10TA PO
[2023-01-16] MEDS ORDERED: ipratropium 0.5 MG/2.5ML nebule IH PRN (06:20)
[2023-01-16] MEDS ORDERED: methylPREDNISolone sod succ 125mg/2ml vial IV ONE (06:20)
[2023-01-16] MEDS ORDERED: albuterol 2.5 MG/3 ML nebule NEB SCH (06:20)
--- NOTE | 2023-01-16 08:08 | NUR ---
Primary RN relieved for break. Patient asleep in bed, resting comfortably.
[2023-01-16 08:47] VITALS: PULSE 79; RESP 16; RESP 18
[2023-01-16] MEDS ORDERED: CefTRIAXone 250MG inj IM ONE (09:30)
[2023-01-16] MEDS ORDERED: CefTRIAXone 250MG IM Kit w/LIDOcaine IM ONE (09:35)
[2023-01-16] MEDS ORDERED: CefTRIAXone/D5W-Rocephin 1gm 50 ML IV ONE (09:40)
[2023-01-16] MEDS ORDERED: PRED20TA PO (09:42)
[2023-01-16] MEDS ORDERED: AZIT250T82 PO (09:42)
[2023-01-16] MEDS ORDERED: ADV50100 INH (09:44)
[2023-01-16 11:07] VITALS: BP 118/85; PULSE 88; RESP 14; TEMP 98; O2SAT 95
== END 2023-01-16 11:10 | disposition home or self-care (01) ==
LOC: ER 05:43
DX: J45.901 Unspecified asthma with (acute) exacerbation (principal); J18.9 Pneumonia, unspecified organism; Z72.89 Other problems related to lifestyle; Z88.1 Allergy status to other antibiotic agents; Z88.5 Allergy status to narcotic agent; Z79.899 Other long term (current) drug therapy
CPT/HCPCS: 71045; 94640; 96365; 96375; 99284; J0696; J2930; 94760

== ENCOUNTER 2023-07-28 13:59 | Emergency (ER) | payer MEDICAID ==
[~2023-07-28] VITALS: Ht 162.6 cm; Wt 77.3 kg
[~2023-07-28 13:59] MED LIST changes: +ADV50100 INH
[2023-07-28] MEDS: ipratropium/albuterol 3ml nebule NEB ONE (14:05)
[2023-07-28 14:12] VITALS: PULSE 134; PULSE 138; RESP 24; O2SAT 94
[2023-07-28 14:13] VITALS: TEMP 98
[2023-07-28 14:43] LABS: EOSINOPHILS # (AUTO) 0.4 X10'3 (0-0.9); LYMPHOCYTES # (AUTO) 4.5 X10'3 (1.1-4.8); MONOCYTES # (AUTO) 0.4 X10'3 (0-0.9); WHITE BLOOD COUNT 6.9 X10'3 (4.5-11.0)
[2023-07-28 14:45] LABS: BASOPHILS % (AUTO) 0.4 % (0-1); EOSINOPHILS % (AUTO) 5.6 % (0-6); HEMATOCRIT 47.4 % (42.0-52.0); LYMPHOCYTES % (AUTO) 65.6 % (21-51); MEAN CORPUSCULAR HEMOGLOBIN 32.3 PG (27.0-31.0); MEAN CORPUSCULAR HGB CONC 33.7 g/dL (33.0-36.5); MEAN CORPUSCULAR VOLUME 95.7 FL (78-98); MEAN PLATELET VOLUME 9.7 FL (7.4-10.4); MONOCYTES % (AUTO) 6.3 % (2-12); NEUTROPHILS # (AUTO) 1.5 X10'3 (1.8-7.7); NEUTROPHILS % (AUTO) 22.1 % (42-75); PLATELET COUNT 155 X10'3 (140-440); RED BLOOD COUNT 4.95 X10'6 (4.70-6.10)
[2023-07-28] MEDS: methylPREDNISolone sod succ 125mg/2ml vial IV ONE (14:53)
[2023-07-28 14:55] LABS: ALBUMIN 3.5 G/DL (3.4-5.0); ANION GAP 14 (8-16); BLOOD UREA NITROGEN 19 MG/DL (7-18); BUN/CREATININE RATIO 19.4 (10.0-20.0); CHLORIDE 106 MMOL/L (99-107); CREATININE 0.98 MG/DL (0.60-1.10); GLUCOSE 87 MG/DL (70-104); POTASSIUM 3.7 MMOL/L (3.5-5.1); SODIUM 145 MMOL/L (135-145); TOTAL CARBON DIOXIDE 24.8 MMOL/L (24-32); eCRCL 80 ML/MIN; eGFR 83 ML/MIN
[2023-07-28] MEDS: albuterol 2.5 MG/3 ML nebule CONTNEB PRN (16:22)
[2023-07-28] MEDS: ipratropium 0.5 MG/2.5ML nebule IH ONE (16:22)
[2023-07-28 16:27] VITALS: PULSE 100; RESP 16; O2SAT 94
[2023-07-28 18:00] VITALS: PULSE 109; RESP 16; O2SAT 96
[2023-07-28] MEDS: azithromycin/NS 500mg/250ml 250 ML IV ONE (18:15)
[2023-07-28] MEDS ORDERED: albuterol 2.5 MG/3 ML nebule NEB ONE (18:15)
[2023-07-28] MEDS ORDERED: CefTRIAXone 250MG inj IV ONE (18:15)
[2023-07-28] MEDS: magnesium 2GM in 50ml NS 50 ML IV ONE (18:33)
[2023-07-28 18:36] LABS: MAGNESIUM 2.1 MG/DL (1.5-2.4)
[2023-07-28] MEDS: CefTRIAXone 2gm/D5W 50ml BAG 50 ML IV ONE (18:46)
[2023-07-28 18:52] LABS: BASOPHILS % (AUTO) 0.2 % (0-1); EOSINOPHILS # (AUTO) 0.1 X10'3 (0-0.9); EOSINOPHILS % (AUTO) 1.2 % (0-6); HEMATOCRIT 46.6 % (42.0-52.0); HEMOGLOBIN 15.8 g/dl (14.0-17.9); LYMPHOCYTES # (AUTO) 0.6 X10'3 (1.1-4.8); LYMPHOCYTES % (AUTO) 10.5 % (21-51); MEAN CORPUSCULAR HEMOGLOBIN 32.5 PG (27.0-31.0); MEAN CORPUSCULAR VOLUME 95.6 FL (78-98); MEAN PLATELET VOLUME 9.3 FL (7.4-10.4); MONOCYTES # (AUTO) 0.1 X10'3 (0-0.9); MONOCYTES % (AUTO) 1.1 % (2-12); NEUTROPHILS # (AUTO) 5.2 X10'3 (1.8-7.7); PLATELET COUNT 134 X10'3 (140-440); RED BLOOD COUNT 4.87 X10'6 (4.70-6.10)
[2023-07-28 19:22] VITALS: BP 111/76
[2023-07-28 20:32] VITALS: PULSE 100; RESP 16; O2SAT 97
== END 2023-07-28 20:33 | disposition home or self-care (01) ==
LOC: ER 14:00
DX: J18.9 Pneumonia, unspecified organism (principal); Z20.822 Contact with and (suspected) exposure to COVID-19; J45.909 Unspecified asthma, uncomplicated; Z88.6 Allergy status to analgesic agent; Z88.1 Allergy status to other antibiotic agents; Z91.018 Allergy to other foods; Z79.899 Other long term (current) drug therapy
CPT/HCPCS: 36415; 71045; 80048; 83735; 84145; 84484; 85025; 87040; 87502; 87503; 87811; 93005; 94640; 94644; 96365; 96368; 96375; 99285; J0456; J0696; J2930; J3475; 94760; A4615; A7015

== ENCOUNTER 2025-01-23 06:22 | Emergency (ER) | payer MEDICAID ==
[~2025-01-23] VITALS: Ht 165.1 cm; Wt 63.2 kg
[2025-01-23 06:30] VITALS: TEMP 98.3
[2025-01-23] MEDS ORDERED: albuterol 2.5 MG/3 ML nebule CONTNEB PRN (06:40)
[2025-01-23] MEDS: ipratropium/albuterol 3ml nebule ONE (06:44)
--- NOTE | 2025-01-23 06:46 | Physician Documentation ---
History of Present Illness ~ Chief Complaint: Respiratory Distress Stated Complaint: SOB M ALS Time Seen by MD: 06:32 Primary Medical Doctor: Cynthia Tomlinson Source: patient Mode of Arrival: EMS Exam Limitations: no limitations HPI Mr. Cabral is a 44 y/o male with PMHx significant for Asthma who presents to the ED via EMS with c/o shortness of breath. He states that symptoms started just [employer]. He woke up short of breath this morning and despite taking his Albuterol, his symptoms did not improve. He called 911 for assistance. On arrival, he had significant wheezing and was unable to speak in complete sentences due to the shortness of breath. He denies recent febrile illness. No known sick contacts. No productive cough. No recent travel. No recent antibiotic exposure. He denies chest pain/pressure/palpitations or discomfort. He states that he has been intubated before for a severe Asthma exacerbation and feels that his current symptoms are not as severe. Medication Reconciliation Allergies: Coded Allergies: ketorolac (Verified Allergy, Intermediate, RASH,TROUBLE BREATHING, 07/28/23) levofloxacin (Verified Allergy, Intermediate, ITCHING, TACHYCARDIA, 07/28/23) PATIENT RECEIVED LEVAQUIN ON AN EARLY VISIT [place] AND COMPLAINED OF THE SAME. PATIENT TO DISCUSS WITH PCP AT [facility]. orange (Verified Allergy, Unknown, 07/28/23) Advised by MD after recent testing not to eat. peanut (Verified Allergy, Unknown, 07/28/23) Advised by PMD after recent testing to avoid. tomato (Verified Allergy, Unknown, 07/28/23) Advised by PMD after recent testing to avoid. glycopyrrolate (Verified Adverse Reaction, Unknown, VOMITING, 07/28/23) Scheduled Fluticasone/Salmeterol (Advair 100-50 Diskus), 1 PUFF INH Q12H Scheduled PRN Albuterol Sulfate (Proventil Hfa), 2 PUFFS INH Q4H PRN for SOB or wheezing, (Reported) Albuterol Sulfate Nebs* (Proventil Nebs*), 2.5 MG IH Q4H PRN for SOB or wheezing, (Reported) Miscellaneous Medications Fluticasone Propionate (Fluticasone Propionate), (Reported) Ipratropium/Albuterol Sulfate (Duoneb 2.5-0.5 Mg/3 Ml Soln), (Reported) Past Medical History Past Medical History: Asthma, Pneumonia, Previously Intubated Past Surgical History: orthopedic surgeries Patient History: (COPD) Chronic obstructive lung disease FATHER, Name: Shakeel Cabral, Born [birth year], Age: 71, Not a twin, Onset:50's - 60 (Cancer) Malignant carcinoid tumor MOTHER, Name: Taty Cabral, Age: 54, Not a twin, Onset:50's - 60 (Thyroid) Asthma FATHER, Name: Shakeel Cabral, Born [birth year], Age: 71, Not a twin, Onset:50's - 60 No Family History of: (CABG) Coronary artery bypass grafting (CAD) Coronary arteriosclerosis (CVA) Cerebrovascular accident (DM Type 2) Diabetes mellitus type 2 (DM Type1) Diabetes mellitus type 1 ([place]) Myocardial infarction (PVD) Peripheral vascular disease (TIA) Transient ischemic attack Alzheimer's disease Aortic aneurysm Cardiac arrest Hypercholesterolemia Alcohol Use: Occasionally Drug Use: none Lives with: Alone Lives In: Home Occupation: employed Review of Systems ROS As stated above in the HPI, otherwise all systems are reviewed and negative. Physical Exam Vital Signs: RN Vital Signs have been reviewed: Yes, Temperature: 98.3, Source: Oral, Heart Rate: 109, Respiratory Rate: 14, BP: 133/85, Pulse Oximetry: 95, Weight: 63.200 Physical Exam VITALS: Reviewed and as above. GENERAL: Alert, no apparent distress. HEENT: Normocephalic, atraumatic, PERRL, EOMI, dry mucosa, no erythema RESPIRATORY: + respiratory distress. Diffuse wheezing in all lung valladares. CHEST: No accessory muscle use, no retractions CV: Regular rate, rhythm, no edema, no murmur, No: JVD GI: Soft, tenderness to the lower abdomen with palpation., bowels sounds present, no rebound, guarding, or rigidity BACK: No CVA tenderness, or swelling MUSCULOSKELETAL No deformities, no edema SKIN: Warm and dry, no rash NEURO: Oriented x4, No motor or sensory deficit PSYCH: Normal mood and affect, no agitation Progress Results/Orders Results/Orders Orders - SURAJ CALDWELL MD Chest,Single View (01/23/25 06:36) Albuterol 2.5mg/3ml Nebule (Proventil 2. (01/23/25 06:40) * Rt Notification Q1H (01/23/25 06:37) Covid19 Binax Poc Result Entry (01/23/25 06:38) Completed Orders - SRUAJ CALDWELL MD Ipratropium/Albuterol Nebule (Ipratrop/A (01/23/25 06:36) Chest,Single View (01/23/25 06:36) Ipratropium Nebule (Atrovent Nebule) (01/23/25 06:40) Prednisone Tablet (Prednisone Tablet) (01/23/25 06:40) Medications Received in ER Medications (Trade) Dose Ordered Sig/Ramiro Route PRN Reason Start Time Stop Time Status Last Admin Dose Admin (ipratrop/ albuterol 0.5-3(2.5) MG/3ml nebule) 9 ml STK-MED ONCE .ROUTE 01/23/25 06:36 01/23/25 06:36 DC 01/23/25 06:44 9 ML (predniSONE tablet) 60 mg ONCE ONCE PO 01/23/25 06:40 01/23/25 06:41 DC 01/23/25 06:58 60 MG Vital Signs 01/23/25 01/23/25 01/23/25 01/23/25 06:30 06:48 07:47 08:04 Temp 98.3 Pulse 109 115 109 94 Resp 14 13 16 20 B/P (MAP) 133/85 138/90 (106) Pulse Ox 95 94 95 98 01/23/25 08:05 Resp 20 B/P (MAP) Laboratory Tests Test 01/23/25 06:41 SARS-CoV-2 Antigen (Rapid) Negative EKG/XRAY/CT/US/VASC/MRI Chest X-Ray : Interpreted By: self Lungs: normal Mediastinum: normal Ribs/Bones: normal Abdomen: normal Impression: no acute disease Medical Decision Making Differential Dx:Considerations: Include: asthma, bronchitis, CHF, COPD, hyperventilation, myocardial infarction, panic attack, pneumonia, pneumonitis, pneumothorax, pulmonary embolism, respiratory distress, respiratory failure, upper resp. infection Additional Infomation On arrival to the ED, Mr. Cabral was noted to be in moderate respiratory distress due to his Acute Asthma exacerbation. He was placed on the desk monitor and RT was at bedside on arrival. We initiated therapy with duonebs and steroids. No clear indication for intubation. I reviewed his CXR and there were no radiographic signs to suggest pulmonary vascular congestion or an acute opacity/infiltrate. He had frequent reassessment and was noted to have significant improvement. COVID-19 screen negative. He does not appear to be clinically volume overloaded. His s/s appear most consistent with an acute Asth ma exacerbation. He was noted to have significant improvement during his stay here in the ED and feels back to his baseline and is requesting d/c home. Ambulated here in the ED with a pulse Ox and SpO2 stayed > 95%. He was given follow-up and return instructions. He voiced understanding and agreement with d/c instructions. Departure Disposition: HOME / SELF CARE / HOMELESS Impression: Primary Impression: Asthma with acute exacerbation Condition: Improved Discharge Instructions: Asthma, Adult Additional Instructions: Please follow up with her primary care provider. Please return to the emergency department with any worsening or recurrent symptoms or any additional concerning symptoms that we discussed here today. Referrals: NO PRIMARY CARE PROVIDER (PCP) Prescriptions Prednisone (Prednisone) 50 Mg Tablet 1 TAB PO DAILY for 5 Days, #5 TAB 0 Refills Prov: SURAJ CALDWELL MD 01/23/25 Education Educated: Patient Educated regarding: diagnosis, treatment Critical Care Note Total Time (mins): 47 Critical Care Note I personally spent 47 minutes critical care time was personally spent by me and independent billable procedures today. Critical care time was indicated for the inherent instability and potential for instability due to acute respiratory failure. During this time I have coordinated care with other teams, reviewed the medical record, consult notes, ICU flow sheets, cardiac monitoring, respiratory/ventilatory monitoring, medication record, imaging, and serial sequential labs. Signature Scribe Signature: N/A Attestation: N/A SURAJ CALDWELL MD Jan 23, 2025 06:46
[2025-01-23 06:48] VITALS: PULSE 115; RESP 13; O2SAT 94
--- NOTE | 2025-01-23 06:56 | RADIOLOGY REPORT ---
CHEST RADIOGRAPH Indication: Acute Asthma Exacerbation Technique: Single frontal view of the chest was obtained COMPARISON: DI CHEST,SINGLE VIEW on DOS: 07/28/23, DI CHEST,SINGLE VIEW on DOS: 01/16/23, DI CHEST,SINGLE VIEW on DOS: 12/19/22, CHEST,SINGLE VIEW on DOS: 10/28/22, CHEST,SINGLE VIEW on DOS: 02/22/20 FINDINGS: Lines and Tubes: None Lungs: Clear Pleura: No effusion. No pneumothorax. Cardiomediastinal contours: Unremarkable Bones: Unremarkable IMPRESSION: 1. No acute disease.
[2025-01-23] MEDS: ipratropium 0.5 MG/2.5ML nebule IH ONE (07:25)
[2025-01-23 07:47] VITALS: PULSE 109; RESP 16; O2SAT 95
[2025-01-23] MEDS ORDERED: PRED50TA PO (09:17)
[2025-01-23 09:26] VITALS: BP 102/63; PULSE 88; RESP 15; O2SAT 95
== END 2025-01-23 09:28 | disposition home or self-care (01) ==
LOC: ER 06:23
DX: J45.901 Unspecified asthma with (acute) exacerbation (principal); Z88.1 Allergy status to other antibiotic agents; Z20.822 Contact with and (suspected) exposure to COVID-19
CPT/HCPCS: 36415; 71045; 87811; 94644; 99285; J7512; 94640; 94760; 99283; A4615; A7015

== ENCOUNTER 2025-03-30 23:19 | Emergency (ER) | payer MEDICAID ==
[~2025-03-30] VITALS: Ht 165.1 cm; Wt 71.5 kg
[~2025-03-30 23:19] MED LIST changes: +PRED50TA PO
[2025-03-30] MEDS: ipratropium/albuterol 3ml nebule NEB ONE (23:44)
[2025-03-30 23:45] VITALS: PULSE 81; RESP 20; O2SAT 9
--- NOTE | 2025-03-30 23:46 | Physician Documentation ---
History of Present Illness ~ Chief Complaint: Asthma Stated Complaint: ASTHMATIC Time Seen by MD: 23:45 Primary Medical Doctor: Cynthia Tomlinson Mode of Arrival: POV HPI Patient presents to the emergency room with chief complaint of shortness of breath. History of asthma. He has been using his inhaler at home without relief. No known exposures. No fevers. States he felt fine yesterday and symptoms began today. Medication Reconciliation Allergies: Coded Allergies: ketorolac (Verified Allergy, Intermediate, RASH,TROUBLE BREATHING, 07/28/23) levofloxacin (Verified Allergy, Intermediate, ITCHING, TACHYCARDIA, 07/28/23) PATIENT RECEIVED LEVAQUIN ON AN EARLY VISIT [place] AND COMPLAINED OF THE SAME. PATIENT TO DISCUSS WITH PCP AT [facility]. orange (Verified Allergy, Unknown, 07/28/23) Advised by MD after recent testing not to eat. peanut (Verified Allergy, Unknown, 07/28/23) Advised by PMD after recent testing to avoid. tomato (Verified Allergy, Unknown, 07/28/23) Advised by PMD after recent testing to avoid. glycopyrrolate (Verified Adverse Reaction, Unknown, VOMITING, 07/28/23) Scheduled Fluticasone/Salmeterol (Advair 100-50 Diskus), 1 PUFF INH Q12H Prednisone (Prednisone), 1 TAB PO DAILY Scheduled PRN Albuterol Sulfate (Proventil Hfa), 2 PUFFS INH Q4H PRN for SOB or wheezing, (Reported) Albuterol Sulfate Nebs* (Proventil Nebs*), 2.5 MG IH Q4H PRN for SOB or wheezing, (Reported) Miscellaneous Medications Fluticasone Propionate (Fluticasone Propionate), (Reported) Ipratropium/Albuterol Sulfate (Duoneb 2.5-0.5 Mg/3 Ml Soln), (Reported) Past Medical History Past Medical History: Asthma, Pneumonia, Previously Intubated Past Surgical History: orthopedic surgeries Patient History: (COPD) Chronic obstructive lung disease FATHER, Name: JakerandikatelynShakeel, Born [birth year], Age: 71, Not a twin, Onset:50's - 60 (Cancer) Malignant carcinoid tumor MOTHER, Name: Taty Cabral, Age: 54, Not a twin, Onset:50's - 60 (Thyroid) Asthma FATHER, Name: Shakeel Cabral, Born [birth year], Age: 71, Not a twin, Onset:50's - 60 No Family History of: (CABG) Coronary artery bypass grafting (CAD) Coronary arteriosclerosis (CVA) Cerebrovascular accident (DM Type 2) Diabetes mellitus type 2 (DM Type1) Diabetes mellitus type 1 ([place]) Myocardial infarction (PVD) Peripheral vascular disease (TIA) Transient ischemic attack Alzheimer's disease Aortic aneurysm Cardiac arrest Hypercholesterolemia Alcohol Use: Occasionally Drug Use: none Lives with: Alone Lives In: Home Occupation: employed Review of Systems ROS All review of systems negative except as per HPI Physical Exam Vital Signs: Temperature: 98.1, Source: Oral, Heart Rate: 81, Respiratory Rate: 17, BP: 160/95, Pulse Oximetry: 94, Weight: 71.500 Oxygen Flow Rate: 0 Physical Exam General: Patient is awake, alert, oriented x4 in no acute distress Head: Normocephalic and atraumatic. Eyes: Conjunctival normal. EOMI. PERRL. ENT: Mucous membranes moist. Neck: Supple, trachea is midline. Chest: Diffuse wheezing bilaterally. There is no accessory muscle use or re tractions. Cardiac: RRR without murmurs, gallops, or rubs. Abd: Soft, nondistended, nontender, with normoactive bowel sounds. No guarding, rebound, or rigidity. Progress Results/Orders Results/Orders Orders - CHALO VO MD Chest,Single View (03/30/25 00:04) Completed Orders - CHALO VO MD Chest,Single View (03/30/25 00:04) Medications Received in ER Medications (Trade) Dose Ordered Sig/Ramiro Route PRN Reason Start Time Stop Time Status Last Admin Dose Admin (ipratrop/ albuterol 0.5-3(2.5) MG/3ml nebule) 3 ml ONCE ONCE NEB 03/30/25 23:40 03/30/25 23:41 DC 03/30/25 23:44 3 ML Vital Signs 03/30/25 03/30/25 03/30/25 03/30/25 23:25 23:41 23:45 23:53 Temp 98.1 Pulse 81 81 92 Resp 17 20 20 B/P (MAP) 160/95 Pulse Ox 94 9 98 O2 Delivery Room Air* Room Air* O2 Flow Rate 0 0 0 FiO2 21 21 EKG/XRAY/CT/US/VASC/MRI Chest X-Ray : Additional Comments One view chest x-ray interpreted by myself is negative for effusions, negative for infiltrates and negative for changes compared to previous. Normal cardiac silhouette Medical Decision Making Additional information obtaine: old records Findings Patient presents to the emergency room for evaluation of shortness of breath. Differentials include but are not limited to asthma, CHF, pneumonia, anxiety attack. Chest x-ray is reassuring and he has responded to breathing treatment. He had not feel emergent labs are necessary. I will put him on short course of steroids with ER precautions discussed. Heart Score: 0 Differential Dx:Considerations: Include: anxiety, asthma, bronchitis, cardiogenic shock, CHF, COPD, dysrhythmia, hypertension, accelerated, hypertension, essential, hypertension, malignant, hyperventilation, hyponat remia, myocardial infarction, panic attack, pneumonia, pneumonitis, pneumothorax, PSVT, pulmonary embolism, respiratory distress, respiratory failure, sinusitis, upper resp. infection, other Departure Disposition: 01 HOME / SELF CARE / HOMELESS Impression: Primary Impression: Acute asthma Condition: Improved Discharge Instructions: Asthma, Adult, [id number] Referrals: NO PRIMARY CARE PROVIDER (PCP) Prescriptions Prednisone* (Prednisone*) 20 Mg Tablet 1 TAB PO DAILY for 5 Days, #5 TAB Prov: CHALO VO MD 03/31/25 Signature Scribe Signature: No scribe Attestation: The note accurately reflects work and decisions made by me.Chalo Vo MD 03/31/25 00:18 CHALO VO MD Mar 30, 2025 23:46
[2025-03-30 23:53] VITALS: PULSE 92; RESP 20; O2SAT 98
[2025-03-31] MEDS ORDERED: PRED20TA PO (00:18)
[2025-03-31 00:26] VITALS: BP 158/92; PULSE 92; RESP 18; TEMP 98.6; O2SAT 98
--- NOTE | 2025-03-31 00:28 | RADIOLOGY REPORT ---
CHEST RADIOGRAPH Indication: sob Technique: Single frontal view of the chest was obtained COMPARISON: DI CHEST,SINGLE VIEW on DOS: 01/23/25, DI CHEST,SINGLE VIEW on DOS: 07/28/23, DI CHEST,SINGLE VIEW on DOS: 01/16/23, DI CHEST,SINGLE VIEW on DOS: 12/19/22, CTA CHEST on DOS: 10/29/22 FINDINGS: Lines and Tubes: None Lungs: Clear Pleura: No effusion. No pneumothorax. Cardiomediastinal contours: Unremarkable Bones: Unremarkable IMPRESSION: 1. No acute disease.
== END 2025-03-31 00:27 | disposition home or self-care (01) ==
LOC: ER 23:19
DX: J45.909 Unspecified asthma, uncomplicated (principal); Z88.1 Allergy status to other antibiotic agents; Z88.8 Allergy status to other drugs, medicaments and biological substances; Z91.010 Allergy to peanuts; Z91.018 Allergy to other foods; Z79.899 Other long term (current) drug therapy; Z72.89 Other problems related to lifestyle; Z60.2 Problems related to living alone
CPT/HCPCS: 71045; 94640; 94760; 99283